=== PATIENT | male | born 1965 | race Caucasian/White ===

== ENCOUNTER 2025-03-08 00:01 | Emergency (ER) | payer MEDICARE, SELFPAY ==
[2025-03-08] VITALS (8 sets, daily range): BP systolic 142–182; BP diastolic 76–103; PULSE 58–62; RESP 10–18; TEMP 36.3; O2SAT 91–100
--- NOTE | ~2025-03-08 | CT_ITS ---
EXAMINATION: CT brain wo con DATE: 03/08/2025 00:39 INDICATION: Head injury. TECHNIQUE: Computed tomography (CT) of the head was performed without intravenous contrast. The mA was adjusted according to patient size. Iterative reconstruction technique was employed. The dose-length product was 605.33 mGy-cm. COMPARISON: None FINDINGS: There is no intracranial hemorrhage, acute infarction, or abnormal intracranial mass lesion. The ventricles are normal in size. There is mucosal thickening in the paranasal sinuses. There is a trace left mastoid effusion. The orbits are normal. IMPRESSION: 1. Normal brain. Reviewed, dictated and finalized at location E. IMPRESSION: 1. Normal brain.
--- NOTE | ~2025-03-08 | XR_ITS ---
Examination: XR shoulder RT min 2V Clinical History: fall down stairs, R shoulder pain Comparison: None Technique: 3 views right shoulder Findings/impression: 1. No fracture or dislocation right shoulder. 2. Multiple small hyperdense foci overlying shoulder girdle, probably artifact or dermal. Reviewed, dictated and finalized at location R.
--- NOTE | ~2025-03-08 | CT_ITS ---
[facility]: [facility] DATE: 03/08/2025 00:40 INDICATION: Trauma. TECHNIQUE: Computed tomography (CT) of the chest, abdomen, pelvis, thoracic spine, and lumbar spine was performed with 100 mL Omnipaque 350 intravenous contrast. Automated exposure control and iterative reconstruction technique were employed. The dose-length product was 1167.28 mGy-cm. COMPARISON: None FINDINGS: CHEST CT: There is mild emphysema. There is a 7 mm nodule in right upper lobe. A calcified right lung nodule is consistent with old granulomatous disease. There is mild atelectasis bilaterally. No pleural effusion. The heart size is normal. No pericardial effusion. There is bilateral gynecomastia. ABDOMEN/PELVIS CT: The liver, gallbladder, spleen, pancreas, adrenal glands, and kidneys are normal. The prostate is mildly enlarged. There are bilateral inguinal hernias containing fat. There are no dilated loops of bowel. The appendix is normal. There are no pathologically enlarged lymph nodes. There is no free intraperitoneal fluid. THORACIC SPINE CT: There is 16 degrees levoscoliosis of upper thoracic spine. There is 2 mm anterolisthesis of C7 on T1. There is mild chronic anterior wedging of many vertebral bodies associated with Schmorl's nodes. There is multilevel mildly decreased disc height and thoracic spine. There is multilevel facet joint osteoarthritis, severe on the right at T4-T5. There is mild neural foraminal stenosis at a few levels. There is mild central canal stenosis at T11-T12. LUMBAR SPINE CT: Alignment is normal. There is mild chronic anterior wedging of L1 vertebral body. There is mildly decreased disc height at L1-L2, L2-L3, and L3-L4 and moderately decreased disc height at L4-L5. There is multilevel severe facet joint osteoarthritis. The discs are bulging from L1-L2 through L5-S1. There is mild bilateral neural foraminal stenosis and mild central canal stenosis from L1-L2 through L5-S1. IMPRESSION: 1. Mild emphysema. 2. 7 mm nodule in right lung upper lobe, probably benign. Noncontrast chest CT is recommended in 6 months. 3. Mild thoracic spondylosis and moderate lumbar spondylosis. Reviewed, dictated and finalized at location E.
--- NOTE | ~2025-03-08 | CT_ITS ---
EXAMINATION: CT facial & cervical spine wo DATE: 03/08/2025 00:40 INDICATION: Head injury. TECHNIQUE: Computed tomography (CT) of the maxillofacial region and cervical spine was performed without intravenous contrast. Automated exposure control and iterative reconstruction technique were employed. The dose-length product was 495.44 mGy-cm. COMPARISON: Cervical spine radiographs 06/28/2013 FINDINGS: MAXILLOFACIAL CT: There is mucosal thickening in the paranasal sinuses. There is leftward deviation of the nasal septum. No acute fracture. The orbits are normal. CERVICAL SPINE CT: There is 2 mm anterolisthesis of C4 on C5 and C7 on T1. Vertebral body heights are normal. There is mildly decreased disc height at C4-C5, severely decreased disc height at C5-C6 and C6-C7, and mildly decreased disc height at C7-T1. There is multilevel severe uncovertebral joint and facet joint osteoarthritis. There is mild neural foraminal stenosis at multiple levels on either side. On the right, there is moderate neural foraminal stenosis at C5-C6 and C6-C7. On the left, there is moderate neural foraminal stenosis at C7-T1. There is mild central canal stenosis at C3-C4, C4-C5, C5-C6, and C6-C7. IMPRESSION: 1. No fracture. 2. Severe cervical spondylosis. Reviewed, dictated and finalized at location E.
--- OUTSIDE RECORDS SUMMARY | 2025-03-08 00:10 | XMS_ITS | Patient Health Record ---
Author Organization [facility] Address [address] [place] [address] Care Team Providers Care Manager Bank Name Role Phone Bharathi Canadaew Primary Care Provider Kiran Del Rio Unavailable [phone] NehaRASHEL, MR. Goncalves Unavailable [phone] Allergies No Known Allergies Results Component Value Reference Range Flag Notes CT Chest with Contrast Reviewed date:02/03/2025 09:17:57 AM Interpretation:closing Performing Lab: Notes/Report: closing [id number] Reviewed date:03/03/2025 08:28:07 AM Interpretation: Performing Lab:[facility], [address] [facility], [place], Phone - [phone], Director - PhDAbudu Notes/Report: Clinical Information:[id number] Clinical Information:[id number] Clinical Information:[id number] Clinical Information:[id number] Amphetamines, Urine Negative Enbaor=0858 ng/mL Amphetamine test includes Amphetamine and Methamphetamine. Barbiturates Negative Uikgrl=287 ng/mL Benzodiazepines Negative Dgmttd=984 ng/mL Cannabinoid Negative Cutoff=20 ng/mL Cocaine (Metab.) Negative Amfzxf=069 ng/mL Opiates See Final Results Xmgizb=694 ng/mL O piate test includes Codeine and Morphine only. Oxycodone/Oxymorphone, Urine See Final Results Syapwp=025 ng/mL Test includes Oxycodone and Oxymorphone PCP, Urine Negative Cutoff=25 ng/mL Methadone Screen, Urine Negative Usjnlo=856 ng/mL Propoxyphene, Urine Negative Pwrywk=426 ng/mL Creatinine, Urine 9.4 20.0-300.0 mg/dL L pH, Urine 5.2 4.5-8.9 Opiates Negative Clidcr=618 Opiate test in cludes Codeine and Morphine only. Oxycodone/Oxymorph Positive Scltsg=191 A Test i ncludes Oxycodone and Oxymorphone Oxycodone Negative Zowhtt=427 Oxymorphone Positive A Oxymorphone Conf, MS, UR 168 Deeiao=016 ng/mL Specific [place] 1.0062 Hydrocodone + Metabolites, U -[id number] Reviewed date:02/24/2025 08:33:19 AM Interpretation: Performing Lab:[facility], [address] [place] [address], Phone - [phone], Director - Ewelina Notes/Report: Clinical Information:[id number] LM Hydrocodone 1810 Hydromorphone 190 This test was developed and its performance characteristics determined by [facility]. It has not been cleared or approved by the Food and Drug Administration. Hemoglobin [id number] Reviewed date:03/18/2024 08:22:17 AM Interpretation: Performing Lab:[facility], [address] [place] [address], Phone - [phone], Director - Pati Notes/Report: Hemoglobin A1c 6.0 4.8-5.6 % H . Prediabetes: 5.7 - 6.4 Diabetes: >6.4 Glycemic control for adults with diabetes: <7.0 LDL Cholesterol (Direct)-120 295 Reviewed date:03/18/2024 08:22:31 AM Interpretation: Performing Lab:[facility] [place], [address] [place] [address], Phone - [phone], Director - Pati Notes/Report: LDL Chol. (Direct) 65 0-99 mg/dL [id number] Reviewed date:03/18/2024 08:22:08 AM Interpretation: Performing Lab:[facility] [place], [address] [facility], Phone - [phone], Director - Pati Notes/Report: NT-proBNP 826 0-210 pg/mL H The following cut-points have been suggested for the use of proBNP for the diagnostic evaluation of heart failure (HF) in patients with acute dyspnea: . Modality Age Optimal Cut (years) Point Diagnosis (rule in HF) <50 450 pg/mL 50 - 75 900 pg/mL >75 1800 pg/mL Exclusion (rule out HF) Age independent 300 pg/mL Lipid Panel-[id number] Reviewed date:03/18/2024 08:21:51 AM Interpretation: Performing Lab:[facility] [place], [address] [facility], Phone - [phone], Director - Pati Notes/Report: Cholesterol, Total 138 100-199 mg/dL Triglycerides 98 0-149 mg/dL HDL Cholesterol 54 >39 mg/dL VLDL Cholesterol Franky 18 5-40 mg/dL LDL Chol Calc ([facility]) 66 0-99 mg/dL LDL Calc Comment: See LDL Comment if reported. Comp. Metabolic Panel (14)-3 51159 Reviewed date:03/18/2024 08:22:24 AM Interpretation: Performing Lab:[facility] [place], [address] [facility], Phone - [phone], Director - Pati Notes/Report: Glucose 87 70-99 mg/dL BUN 12 6-24 mg/dL Creatinine 1.12 0.76-1.27 mg/dL eGFR 76 >59 mL/min/1.73 BUN/Creatinine Ratio 11 9-20 Sodium 140 134-144 mmol/L Potassium 5.2 3.5-5.2 mmol/L Chloride 100 96-106 mmol/L Carbon Dioxide, Total 24 20-29 mmol/L Calcium 9.7 8.7-10.2 mg/dL Protein, Total 7.2 6.0-8.5 g/dL Albumin 4.5 3.8-4.9 g/dL Globulin, Total 2.7 1.5-4.5 g/dL Bilirubin, Total 0.4 0.0-1.2 mg/dL Alkaline Phosphatase 82 44-121 IU/L AST (SGOT) 25 0-40 IU/L ALT (SGPT) 20 0-44 IU/L Prostate-Specific Ag-[id number] Reviewed date:03/18/2024 08:21:58 AM Interpretation: Performing Lab:[facility] [place], [address] [facility], Phone - [phone], Director - [facility] Notes/Report: Prostate Specific Ag 1.0 0.0-4.0 ng/mL Salome ECLIA methodology. . According to the [place] [employer], Serum PSA should decrease and remain at undetectable levels after radical prostatectomy. The AUA defines biochemical recurrence as an initial PSA value 0.2 ng/mL or greater followed by a subsequent confirmatory PSA value 0.2 ng/mL or greater. Values obtained with different assay methods or kits cannot be used interchangeably. Results cannot be interpreted as absolute evidence of the presence or absence of malignant disease. CBC With Differential/Platel et-[id number] Reviewed date:03/18/2024 08:21:42 AM Interpretation: Performing Lab:[facility] [place], [address] [facility], Phone - [phone], Director - [facility] Notes/Report: WBC 8.8 3.4-10.8 x10E3/uL RBC 5.44 4.14-5.80 x10E6/uL Hemoglobin 17.2 13.0-17.7 g/dL Hematocrit 52.7 37.5-51.0 % H MCV 97 79-97 fL MCH 31.6 26.6-33.0 pg MCHC 32.6 31.5-35.7 g/dL RDW 12.4 11.6-15.4 % Platelets 285 150-450 x10E3/uL Neutrophils 70 Not Estab. % Lymphs 19 Not Estab. % Monocytes 9 Not Estab. % Eos 1 Not Estab. % Basos 1 Not Estab. % Neutrophils (Absolute) 6.2 1.4-7.0 x10E3/uL Lymphs (Absolute) 1.7 0.7-3.1 x10E3/uL Monocytes(Absolute) 0.8 0.1-0.9 x10E3/uL Eos (Absolute) 0.1 0.0-0.4 x10E3/uL Baso (Absolute) 0.1 0.0-0.2 x10E3/uL Immature Granulocytes 0 Not Estab. % Immature Grans (Abs) 0.0 0.0-0.1 x10E3/uL TSH-[id number] Reviewed date:03/18/2024 08:20:50 AM Interpretation: Performing Lab:[address], Phone - [phone], Director - [facility] Notes/Report: TSH 2.460 0.450-4.500 uIU/mL Thyroxine (T4) Free, Direct- [id number] Reviewed date:03/18/2024 08:21:29 AM Interpretation: Performing Lab:[address], Phone - [phone], Director - [facility] Notes/Report: T4,Free(Direct) 1.20 0.82-1.77 ng/dL Magnesium-171102 Reviewed date:03/18/2024 08:21:23 AM Interpretation: Performing Lab:[address], Phone - [phone], Director - [facility] Notes/Report: Magnesium 2.3 1.6-2.3 mg/dL CT Scan : Abdomen and Pelvis with contrast Reviewed date:02/03/2025 09:17:27 AM Interpretation:closing Performing Lab: Notes/Report: closing HAVAb+HBcAb+HBsAb+HBsAg+HCVA b-[id number] Reviewed date:12/19/2024 02:15:51 PM Interpretation: Performing Lab:[address], Phone - [phone], Director - [facility] Notes/Report: Hep A Ab, Total Negative Negative Comment: The HAV total antibody assay detects both IgG and IgM but does not differentiate between them. A negative result suggests susceptibility to infection. A positive result could be due to vaccination, previously resolved infection or active infection. Testing for HAV IgM should be performed if active HAV infection is suspected. [facility] offers profiles that will automatically reflex positive HAV total antibody results to IgM (e.g., panel #[id number] HAV Antibody w/ Rfx). HBsAg Screen Negative Negative Hep B Core Ab, Tot Negative Negative Hep B Surface Ab, Qual Non Reactive Non Reactive: Not immune to HBV infection. Equivocal: Unable to determine if anti-HBs is present at levels consistent with immunity. Reactive: Anti-HBs concentration detected at greater than 10 mIU/mL. Individual is considered to be immune to infection with HBV. HCV Ab Non Reactive Non Reactive Interpretation: Not infected with HCV unless early or acute infection is suspected (which may be delayed in an immunocompromised individual), or other evidence exists to indicate HCV infection. Comp. Metabolic Panel (14)-3 15293 Reviewed date:12/19/2024 02:15:51 PM Interpretation: Performing Lab:[facility] [place], [address] [facility], Phone - [phone], Director - [facility] Notes/Report: Glucose 96 70-99 mg/dL BUN 12 6-24 mg/dL Creatinine 1.06 0.76-1.27 mg/dL eGFR 81 >59 mL/min/1.73 BUN/Creatinine Ratio 11 9-20 Sodium 137 134-144 mmol/L Potassium 5.0 3.5-5.2 mmol/L Chloride 98 96-106 mmol/L Carbon Dioxide, Total 26 20-29 mmol/L Calcium 9.4 8.7-10.2 mg/dL Protein, Total 7.3 6.0-8.5 g/dL Albumin 4.6 3.8-4.9 g/dL Globulin, Total 2.7 1.5-4.5 g/dL Bilirubin, Total 0.4 0.0-1.2 mg/dL Alkaline Phosphatase 93 44-121 IU/L AST (SGOT) 20 0-40 IU/L ALT (SGPT) 14 0-44 IU/L Lipid Panel-[id number] Reviewed date:12/19/2024 02:15:51 PM Interpretation: Performing Lab:[facility] [place], [address] [facility] [place], Phone - [phone], Director - [facility] Notes/Report: Cholesterol, Total 129 100-199 mg/dL Triglycerides 66 0-149 mg/dL HDL Cholesterol 55 >39 mg/dL VLDL Cholesterol Franky 14 5-40 mg/dL LDL Chol Calc ([facility]) 60 0-99 mg/dL LDL Calc Comment: See LDL Comment if reported. LDL Cholesterol (Direct)-120 295 Reviewed date:12/19/2024 02:15:51 PM Interpretation: Performing Lab:[address], Phone - [phone], Director - [facility] Notes/Report: LDL Chol. (Direct) 57 0-99 mg/dL CBC With Differential/Platel et-[id number] Reviewed date:12/19/2024 02:15:51 PM Interpretation: Performing Lab:[facility], [address] [place] [address], Phone - [phone], Director - [facility] Notes/Report: WBC 5.4 3.4-10.8 x10E3/uL RBC 4.85 4.14-5.80 x10E6/uL Hemoglobin 15.1 13.0-17.7 g/dL Hematocrit 47.2 37.5-51.0 % MCV 97 79-97 fL MCH 31.1 26.6-33.0 pg MCHC 32.0 31.5-35.7 g/dL RDW 12.7 11.6-15.4 % Platelets 255 150-450 x10E3/uL Neutrophils 47 Not Estab. % Lymphs 33 Not Estab. % Monocytes 15 Not Estab. % Eos 3 Not Estab. % Basos 2 Not Estab. % Neutrophils (Absolute) 2.5 1.4-7.0 x10E3/uL Lymphs (Absolute) 1.8 0.7-3.1 x10E3/uL Monocytes(Absolute) 0.8 0.1-0.9 x10E3/uL Eos (Absolute) 0.2 0.0-0.4 x10E3/uL Baso (Absolute) 0.1 0.0-0.2 x10E3/uL Immature Granulocytes 0 Not Estab. % Immature Grans (Abs) 0.0 0.0-0.1 x10E3/uL Hemoglobin [id number] Reviewed date:12/19/2024 02:15:51 PM Interpretation: Performing Lab:[facility], [address] [place] [address], Phone - [phone], Director - [facility] Notes/Report: Hemoglobin A1c 5.8 4.8-5.6 % H . Prediabetes: 5.7 - 6.4 Diabetes: >6.4 Glycemic control for adults with diabetes: <7.0 Lipase-[id number] Reviewed date:12/19/2024 02:15:50 PM Interpretation: Performing Lab:[facility] [address], Phone - [phone], Director - [facility] Notes/Report: Lipase 23 13-78 U/L Colonoscopy Reviewed date:01/09/2025 07:53:47 AM Interpretation: Performing Lab: Notes/Report: Comp. Metabolic Panel (14)-3 Reviewed date:09/18/2024 08:10:49 AM Interpretation: Performing Lab:[facility] [address], Phone - [phone], Director - [facility] Notes/Report: Glucose 96 70-99 mg/dL BUN 16 6-24 mg/dL Creatinine 1.11 0.76-1.27 mg/dL eGFR 77 >59 mL/min/1.73 BUN/Creatinine Ratio 14 9-20 Sodium 139 134-144 mmol/L Potassium 5.1 3.5-5.2 mmol/L Chloride 99 96-106 mmol/L Carbon Dioxide, Total 25 20-29 mmol/L Calcium 9.5 8.7-10.2 mg/dL Protein, Total 7.1 6.0-8.5 g/dL Albumin 4.4 3.8-4.9 g/dL Globulin, Total 2.7 1.5-4.5 g/dL Bilirubin, Total 0.3 0.0-1.2 mg/dL Alkaline Phosphatase 93 44-121 IU/L AST (SGOT) 21 0-40 IU/L ALT (SGPT) 18 0-44 IU/L Lipid Panel-[id number] Reviewed date:09/18/2024 08:10:49 AM Interpretation: Performing Lab:[facility], Phone - [phone], Director - [facility] Notes/Report: Cholesterol, Total 135 100-199 mg/dL Triglycerides 79 0-149 mg/dL HDL Cholesterol 51 >39 mg/dL VLDL Cholesterol Franky 16 5-40 mg/dL LDL Chol Calc ([facility]) 68 0-99 mg/dL LDL Calc Comment: See LDL Comment if reported. LDL Cholesterol (Direct)-120 295 Reviewed date:09/18/2024 08:10:49 AM Interpretation: Performing Lab:[facility], [address] [facility], Phone - [phone], Director - [facility] Notes/Report: LDL Chol. (Direct) 64 0-99 mg/dL CBC With Differential/Platel et-[id number] Reviewed date:09/18/2024 08:10:49 AM Interpretation: Performing Lab:[facility], [address] [place] [address], Phone - [phone], Director - [facility] Notes/Report: WBC 8.0 3.4-10.8 x10E3/uL RBC 4.82 4.14-5.80 x10E6/uL Hemoglobin 15.3 13.0-17.7 g/dL Hematocrit 46.6 37.5-51.0 % MCV 97 79-97 fL MCH 31.7 26.6-33.0 pg MCHC 32.8 31.5-35.7 g/dL RDW 11.9 11.6-15.4 % Platelets 261 150-450 x10E3/uL Neutrophils 63 Not Estab. % Lymphs 23 Not Estab. % Monocytes 10 Not Estab. % Eos 3 Not Estab. % Basos 1 Not Estab. % Neutrophils (Absolute) 5.0 1.4-7.0 x10E3/uL Lymphs (Absolute) 1.8 0.7-3.1 x10E3/uL Monocytes(Absolute) 0.8 0.1-0.9 x10E3/uL Eos (Absolute) 0.2 0.0-0.4 x10E3/uL Baso (Absolute) 0.1 0.0-0.2 x10E3/uL Immature Granulocytes 0 Not Estab. % Immature Grans (Abs) 0.0 0.0-0.1 x10E3/uL Hemoglobin [id number] Reviewed date:09/18/2024 08:10:48 AM Interpretation: Performing Lab:[facility], [address] [place] [address], Phone - [phone], Director - [facility] Notes/Report: Hemoglobin A1c 5.8 4.8-5.6 % H . Prediabetes: 5.7 - 6.4 Diabetes: >6.4 Glycemic control for adults with diabetes: <7.0 Comp. Metabolic Panel (14)-3 Reviewed date:06/13/2024 10:08:39 AM Interpretation: Performing Lab:[facility] [place], [address] [facility], Phone - [phone], Director - Pati Notes/Report: Glucose 85 70-99 mg/dL BUN 12 6-24 mg/dL Creatinine 1.02 0.76-1.27 mg/dL eGFR 85 >59 mL/min/1.73 BUN/Creatinine Ratio 12 9-20 Sodium 138 134-144 mmol/L Potassium 4.8 3.5-5.2 mmol/L Chloride 97 96-106 mmol/L Carbon Dioxide, Total 24 20-29 mmol/L Calcium 9.5 8.7-10.2 mg/dL Protein, Total 7.0 6.0-8.5 g/dL Albumin 4.5 3.8-4.9 g/dL Globulin, Total 2.5 1.5-4.5 g/dL Bilirubin, Total 0.6 0.0-1.2 mg/dL Alkaline Phosphatase 84 44-121 IU/L AST (SGOT) 20 0-40 IU/L ALT (SGPT) 12 0-44 IU/L Lipid Panel-[id number] Reviewed date:06/13/2024 10:08:39 AM Interpretation: Performing Lab:[facility] [place], [address] [facility], Phone - [phone], Director - Pati Notes/Report: Cholesterol, Total 131 100-199 mg/dL Triglycerides 74 0-149 mg/dL HDL Cholesterol 56 >39 mg/dL VLDL Cholesterol Franky 15 5-40 mg/dL LDL Chol Calc ([facility]) 60 0-99 mg/dL LDL Calc Comment: See LDL Comment if reported. LDL Cholesterol (Direct)-120 295 Reviewed date:06/13/2024 10:08:39 AM Interpretation: Performing Lab:[facility] [place], [address] [facility], Phone - [phone], Director - Pati Notes/Report: LDL Chol. (Direct) 63 0-99 mg/dL CBC With Differential/Platel et-[id number] Reviewed date:06/13/2024 10:08:39 AM Interpretation: Performing Lab:[facility] [place], [address] [facility], Phone - [phone], Director - Pati Notes/Report: WBC 6.6 3.4-10.8 x10E3/uL RBC 4.70 4.14-5.80 x10E6/uL Hemoglobin 15.2 13.0-17.7 g/dL Hematocrit 45.8 37.5-51.0 % MCV 97 79-97 fL MCH 32.3 26.6-33.0 pg MCHC 33.2 31.5-35.7 g/dL RDW 13.7 11.6-15.4 % Platelets 267 150-450 x10E3/uL Neutrophils 48 Not Estab. % Lymphs 36 Not Estab. % Monocytes 12 Not Estab. % Eos 3 Not Estab. % Basos 1 Not Estab. % Neutrophils (Absolute) 3.1 1.4-7.0 x10E3/uL Lymphs (Absolute) 2.4 0.7-3.1 x10E3/uL Monocytes(Absolute) 0.8 0.1-0.9 x10E3/uL Eos (Absolute) 0.2 0.0-0.4 x10E3/uL Baso (Absolute) 0.1 0.0-0.2 x10E3/uL Immature Granulocytes 0 Not Estab. % Immature Grans (Abs) 0.0 0.0-0.1 x10E3/uL Hemoglobin [id number] Reviewed date:06/13/2024 10:08:39 AM Interpretation: Performing Lab:[facility] [place], [address] [facility], Phone - [phone], Director - [facility] Notes/Report: Hemoglobin A1c 5.8 4.8-5.6 % H . Prediabetes: 5.7 - 6.4 Diabetes: >6.4 Glycemic control for adults with diabetes: <7.0 Reason For Referral Reason COPD Diagnosis 1 Chronic obstructive pulmonary disease, unspecified COPD type (J44.9) Referral Organization [facility] Referring Provider First Name Josh Referring Provider Last Name Nancie Referring Provider Speciality Internal M edicine [facility] Referred Provider Specialty Pulmonary Di seases General Notes Deepika Brooks 2023 09:34:46 AM >Faxed this morning [phone] fax [phone], Deepika Brooks 04/01/2024 10:47:54 AM >Tried to obtain a insurance referral from [facility] however Brandon nor Dr. Del Rio is listed as PCP left pt vm asking him to call [facility] and get pcp changed this is the only way I can obtain insurance referral, Deepika Brooks 06/13/2024 10:37:00 AM >amparo on 06/10 was canceled RS for 07/01 @ 1pm, Deepika Brooks 07/03/2024 09:57:26 AM >amparo for 07/01 was cancelled RS for 08/07 @ 1pmCecilia Ella 10/16/2024 02:40:31 PM >per EPIC canceled and has not RS closing Referral Priority Routine Referral Appointment Date 08/07/2024 Medications Medication SIG (Take, Route, Frequency, Duration) Notes Start Date End Date Status HYDROcodone-Acetamino phen 10-325 MG Tablet TAKE 1 OR 2 TABLETS Orally every 6 hrs; Duration: 30 days As needed for pain 28 days between fills 03/03/2025 03/28/2025 Active Calcium Carbonate 1250 (500 Ca) MG Tablet Chewable 1 tablet with food Orally Twice a day Not-Taking Fluticasone Propionate HFA 220 MCG/ACT Aerosol 1 puff Inhalation Twice a day Not-Taking Entresto 24-26 MG Tablet 1 tablet Orally Twice a day Not-Taking Atorvastatin Calcium 40 MG Tablet TAKE ONE TABLET BY MOUTH EVERY DAY; Duration: 30 Active Amiodarone HCl 200 MG Tablet 1 tablet Orally Once a day Active Metoprolol Succinate ER 200 MG Tablet Extended Release 24 Hour 1 tablet Orally q hs Active Omeprazole 40 MG Capsule Delayed Release TAKE 1 CAPSULE BY MOUTH DAILY ORALLY ONCE A DAY 30 DAYS; Duration: 30 Active Varenicline Tartrate 0.5 MG Tablet 1 tablet once a day for 3 days, 1 tablet 2 times a day for 3 days, 2 tablets 2 times a day for 24 days Orally; Duration: 30 days for refill please do 1mg twice daily x 30 days Not-Taking Acetaminophen 325 MG Tablet 1 tablet as needed Orally every 6 hrs Active Telmisartan 20 MG Tablet 1 tablet Orally Once a day Active Empagliflozin 10 MG Tablet 1 tablet Orally Once a day Active Eliquis 5 MG Tablet 1 tablet Orally twice a day; Duration: 30 days Active Furosemide 40 MG Tablet 1 half tablet Orally Once a day Active ALPRAZolam 1 MG Tablet TAKE ONE TABLET BY MOUTH Orally one time daily as needed; Duration: 30 days As needed for anxiety 01/09/2025 Active Fiber Adult Gummies 2 GM Tablet Chewable as directed Orally daily As needed Active Levalbuterol Tartrate 45 MCG/ACT Aerosol 1 puff as needed Inhalation every 6 hrs; Duration: 30 days As needed for SOB Active Immunizations Vaccine Route Administration Date Status Comme nts COVID-19 (Sars-COV-2) vaccin e, unspecified Unknown 07/21/2020 Administered COVID-19 (Sars-COV-2) vaccin e, unspecified Unknown 05/12/2021 Administered COVID-19 (Sars-COV-2) vaccin e, unspecified Unknown 02/27/2024 Administered Influenza virus vaccine, quadrivalent (IIV4), split virus, 0.25 mL dosage Unknown 05/12/2021 Administered Influenza, seasonal, injecta ble, preservative free, 6-35 months Unknown 02/17/2024 Administered Pneumococcal polysaccharide PPV23 Unknown 04/21/2021 Ad ministered Shingrix Unknown 02/27/2024 Administered Social History Tobacco Use: Social History Observation Description Date Details (start date - stop date) Former Smoker NA - 09/12/2024 Social History Miscellaneous: Social Info Question Answer Notes Safety issues: Do you feel safe at home? Yes Are there any firearms in the house? No Sexual History: Social Info Question Answer Notes Sexual History Had sex in the past 12 months (vaginal, oral, or anal)? Yes with Women only Use protection? No Have you ever had a Sexually transmitted disease ? No Drugs/Alcohol: Social Info Question Answer Notes Drugs Have you used drugs other than those for medical reasons in the past 12 months? No Do you use marijuana? Do you use marijuana? No Caffeine Intake: 1-2 cups per day Household: Social Info Question Answer Notes Household Marital status: Number of adults in household: 2 Tobacco Use: Social Info Question Answer Notes Tobacco Control (Standard) Tobacco use: Former smoker When did you stop smoking? 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 De nies Do you drink alcohol? Socially Migrated Social History Migrated Social History Alcohol Intake: Moderate 03/17/2020,Tobacco Years: Formerly 02/11/2021,Smoking Status: 30 03/17/2020 Problems Problem Type SNOMED Code ICD Code Onset Dates Problem Status W/U Status Risk Notes Problem Chronic pain (75965368) Other chronic pain (G89.29) Active confirmed Problem Anesthesia of skin (873440787) Anesthesia of skin (R20.0) Active confirmed Problem Prediabetes (259568891) Prediabetes (R73.03) Active confirmed Problem Rupture of right rotator cuff (97167868982286616 ) Unsp rotatr-cuff tear/ruptr of right shoulder, not trauma (M75.101) 03/09/20 20 Active confirmed Problem Primary hypertension (75275770) Primary hypertension (I10) Active confirmed Problem Hyperlipidaemia (49106283) Hyperlipidemia, unspecified hyperlipidemia type (E78.5) Active confirmed Problem Vitamin D deficiency (46930711) Vitamin D deficiency (E55.9) Active confirmed Problem Chronic atrial fibrillation (961550113) Chronic atrial fibrillation (I48.20) Active confirmed Problem Pulmonary nodule (252070785) Pulmonary nodule (R91.1) Active confirmed Problem Chronic sinusitis (63966647) Sinusitis, unspecified chronicity, unspecified location (J32.9) Active confirmed Problem COPD - Chronic obstructive pulmonary disease (05313370) Chronic obstructive pulmonary disease, unspecified COPD type (J44.9) Active confirmed Problem Atrial fibrillation (87237899) Atrial fibrillation, unspecified type (I48.91) Active confirmed Problem Heart failure (60932349) Congestive heart failure, unspecified HF chronicity, unspecified heart failure type (I50.9) Active confirmed Problem Lumbar spondylosis (921201381) Lumbar spondylosis (M47.816) Active confirmed Problem Testicular hypofunction (637837266) Testicular hypofunction (E29.1) 03/22/20 21 Active confirmed Problem Vitamin B deficiency (58676033) Vitamin B deficiency, unspecified (E53.9) 03/22/20 21 Active confirmed Problem Vitamin D deficiency (59458570) Vitamin D deficiency, unspecified (E55.9) 03/22/20 21 Active confirmed Problem Mixed hyperlipidemia (357702416) Mixed hyperlipidemia (E78.2) 11/23/19 22 Active confirmed Problem Tobacco user (807352630) Nicotine dependence, unspecified, uncomplicated (F17.200) 11/23/19 Active confirmed Problem Anxiety disorder (270923445) Anxiety disorder, unspecified (F41.9) 11/18/19 Active confirmed Problem Essential hypertension (40060176) Essential (primary) hypertension (I10) 11/23/19 Active confirmed Problem Chronic sinusitis (58737499) Chronic sinusitis, unspecified (J32.9) 10/24/19 Active confirmed Problem Chronic obstructive pulmonary disease (57918056) Chronic obstructive pulmonary disease, unspecified (J44.9) 11/23/19 Active confirmed Problem Gastro-esophageal reflux disease without esophagitis ([id number]) Gastro-esophageal reflux disease without esophagitis (K21.9) 11/23/19 Active confirmed Problem Localized, primary osteoarthritis of the shoulder region (331603700) Primary osteoarthritis, unspecified shoulder (M19.019) 02/07/20 19 Active confirmed Problem Cervical radiculopathy (05058032) Radiculopathy, cervical region (M54.12) 11/23/19 Active confirmed Problem Neuralgia (43560408) Neuralgia and neuritis, unspecified (M79.2) 03/09/20 Active confirmed Problem Spinal stenosis of lumbar region (19461293) Spinal stenosis, lumbar region without neurogenic reva (M48.061) 11/23/19 Active confirmed Vital Signs Heart Rate 52 /min 02/20/2025 Temperature 96.2 degrees Fahrenheit 02/20/2025 Height-cm 187.96 cm 02/20/2025 Oximetry 95 % 01/09/2025 Pt declined rap id hiv Blood pressure diastolic 80 mm Hg 01/09/2025 Pt declined rapid hiv Weight-kg 86.64 kg 02/20/2025 Height 74.00 in 02/20/2025 Blood pressure systolic 141 mm Hg 01/09/2025 Pt d eclined rapid hiv Weight 191.0 lbs 02/20/2025 BMI 24.52 kg/m2 02/20/2025 Encounters Encounter Location Date Provider Diagnosis [id number] [place] [address] 03/14/2024 Josh Canada Unsp rotatr-cuff tear/ruptr of right shoulder, not trauma M75.101 ; Anxiety disorder, unspecified F41.9 ; Chronic atrial fibrillation I48.20 ; Primary hypertension I10 ; Chronic obstructive pulmonary disease, unspecified J44.9 ; Gastro-esophageal reflux disease without esophagitis K21.9 ; Hyperlipidemia, unspecified hyperlipidemia type E78.5 ; Nicotine dependence, unspecified, uncomplicated F17.200 ; Hyperglycemia R73.9 ; On watermelon inspector drug therapy Z79.899 ; Screening for prostate cancer Z12.5 ; Congestive heart failure, unspecified HF chronicity, unspecified heart failure type I50.9 and Sinusitis, unspecified chronicity, unspecified location J32.[address] [address] 04/17/2024 Josh Canada Unsp rotatr-cuff tear/ruptr of right shoulder, not trauma M75.101 ; Anxiety disorder, unspecified F41.9 ; Chronic atrial fibrillation I48.20 ; Primary hypertension I10 ; Chronic obstructive pulmonary disease, unspecified J44.9 ; Gastro-esophageal reflux disease without esophagitis K21.9 ; Hyperlipidemia, unspecified hyperlipidemia type E78.5 ; Nicotine dependence, unspecified, uncomplicated F17.200 ; Hyperglycemia R73.9 ; Screening for prostate cancer Z12.5 ; Congestive heart failure, unspecified HF chronicity, unspecified heart failure type I50.9 and Sinusitis, unspecified chronicity, unspecified location J32.[address] [address] 05/13/2024 Josh Canada Unsp rotatr-cuff tear/ruptr of right shoulder, not trauma M75.101 ; Anxiety disorder, unspecified F41.9 ; Chronic atrial fibrillation I48.20 ; Primary hypertension I10 ; Chronic obstructive pulmonary disease, unspecified J44.9 ; Gastro-esophageal reflux disease without esophagitis K21.9 ; Hyperlipidemia, unspecified hyperlipidemia type E78.5 ; Nicotine dependence, unspecified, uncomplicated F17.200 ; Hyperglycemia R73.9 ; Congestive heart failure, unspecified HF chronicity, unspecified heart failure type I50.9 and Lip lesion K13.[address] [address] 06/12/2024 Josh Canada Unsp rotatr-cuff tear/ruptr of right shoulder, not trauma M75.101 ; Anxiety disorder, unspecified F41.9 ; Chronic atrial fibrillation I48.20 ; Primary hypertension I10 ; Chronic obstructive pulmonary disease, unspecified J44.9 ; Gastro-esophageal reflux disease without esophagitis K21.9 ; Hyperlipidemia, unspecified hyperlipidemia type E78.5 ; Nicotine dependence, unspecified, uncomplicated F17.200 ; Hyperglycemia R73.9 ; Congestive heart failure, unspecified HF chronicity, unspecified heart failure type I50.9 and Lip lesion K13.[address] [address] 08/05/2024 Josh Canada Unsp rotatr-cuff tear/ruptr of right shoulder, not trauma M75.101 ; Anxiety disorder, unspecified F41.9 ; Chronic atrial fibrillation I48.20 ; Primary hypertension I10 ; Chronic obstructive pulmonary disease, unspecified J44.9 ; Gastro-esophageal reflux disease without esophagitis K21.9 ; Hyperlipidemia, unspecified hyperlipidemia type E78.5 ; Nicotine dependence, unspecified, uncomplicated F17.200 ; Hyperglycemia R73.9 ; Congestive heart failure, unspecified HF chronicity, unspecified heart failure type I50.9 and Lip lesion K13.[address] [address] 09/17/2024 Sacha Suzan Unsp rotatr-cuff tear/ruptr of right shoulder, not trauma M75.101 ; Anxiety disorder, unspecified F41.9 ; Chronic atrial fibrillation I48.20 ; Primary hypertension I10 ; Chronic obstructive pulmonary disease, unspecified J44.9 ; Gastro-esophageal reflux disease without esophagitis K21.9 ; Hyperlipidemia, unspecified hyperlipidemia type E78.5 ; Nicotine dependence, unspecified, uncomplicated F17.200 ; Hyperglycemia R73.9 and Congestive heart failure, unspecified HF chronicity, unspecified heart failure type I50.[address] [address] 11/11/2024 Josh Canada Unsp rotatr-cuff tear/ruptr of right shoulder, not trauma M75.101 ; Anxiety disorder, unspecified F41.9 ; Chronic atrial fibrillation I48.20 ; Primary hypertension I10 ; Chronic obstructive pulmonary disease, unspecified J44.9 ; Gastro-esophageal reflux disease without esophagitis K21.9 ; Hyperlipidemia, unspecified hyperlipidemia type E78.5 ; Nicotine dependence, unspecified, uncomplicated F17.200 ; Hyperglycemia R73.9 ; Congestive heart failure, unspecified HF chronicity, unspecified heart failure type I50.9 ; Lip lesion K13.0 and Screen for colon cancer Z12.[address] [address] 12/16/2024 Josh Canada Unsp rotatr-cuff tear/ruptr of right shoulder, not trauma M75.101 ; Anxiety disorder, unspecified F41.9 ; Chronic atrial fibrillation I48.20 ; Primary hypertension I10 ; Chronic obstructive pulmonary disease, unspecified J44.9 ; Gastro-esophageal reflux disease without esophagitis K21.9 ; Hyperlipidemia, unspecified hyperlipidemia type E78.5 ; Nicotine dependence, unspecified, uncomplicated F17.200 ; Hyperglycemia R73.9 ; Congestive heart failure, unspecified HF chronicity, unspecified heart failure type I50.9 ; Lip lesion K13.0 ; Screen for colon cancer Z12.11 and Abdominal discomfort R10.[address] [address] 01/09/2025 Josh Canada Unsp rotatr-cuff tear/ruptr of right shoulder, not trauma M75.101 ; Anxiety disorder, unspecified F41.9 ; Chronic atrial fibrillation I48.20 ; Primary hypertension I10 ; Chronic obstructive pulmonary disease, unspecified J44.9 ; Gastro-esophageal reflux disease without esophagitis K21.9 ; Hyperlipidemia, unspecified hyperlipidemia type E78.5 ; Nicotine dependence, unspecified, uncomplicated F17.200 ; Hyperglycemia R73.9 ; Congestive heart failure, unspecified HF chronicity, unspecified heart failure type I50.9 ; Lip lesion K13.0 ; Screen for colon cancer Z12.11 ; Abdominal discomfort R10.9 and Pulmonary nodules R91.[address] [address] 02/20/2025 Josh Canada Anxiety disorder, unspecified F41.9 ; Nicotine dependence, unspecified, uncomplicated F17.200 ; Chronic obstructive pulmonary disease, unspecified J44.9 ; Gastro-esophageal reflux disease without esophagitis K21.9 ; Unsp rotatr-cuff tear/ruptr of right shoulder, not trauma M75.101 ; Primary hypertension I10 ; Hyperlipidemia, unspecified hyperlipidemia type E78.5 ; Chronic atrial fibrillation I48.20 ; Screen for colon cancer Z12.11 ; Hyperglycemia R73.9 ; Congestive heart failure, unspecified HF chronicity, unspecified heart failure type I50.9 ; Abdominal discomfort R10.9 ; Pulmonary nodules R91.8 ; Lip lesion K13.0 and On snf drug therapy Z79.[address] [address] 03/14/2024 Kiran Scheperle Low back pain, unspecified back pain laterality, unspecified chronicity, unspecified whether sciatica present M54.[address] [address] 03/14/2024 Josh Nancie [address] [address] 03/18/2024 Kiran Scheperle Low back pain, unspecified back pain laterality, unspecified chronicity, unspecified whether sciatica present M54.[address] [address] 04/17/2024 Josh Canada [address] [address] 04/18/2024 Kiran Scheperle Low back pain, unspecified back pain laterality, unspecified chronicity, unspecified whether sciatica present M54.[address] [address] 05/13/2024 Kiran Scheperle Low back pain, unspecified back pain laterality, unspecified chronicity, unspecified whether sciatica present M54.[address] [address] 06/24/2024 Josh Canada Sinusitis, unspecifi ed chronicity, unspecified location J32.[address] [address] 07/02/2024 Kiran Scheperle Low back pain, unspecified back pain laterality, unspecified chronicity, unspecified whether sciatica present M54.[address] [address] 08/05/2024 Kiran Scheperle [address] [address] 08/06/2024 Kiran Scheperle Low back pain, unspecified back pain laterality, unspecified chronicity, unspecified whether sciatica present M54.[address] [address] 08/31/2024 Josh Nancie Anxiety disorder, unspecified F41.[address] [address] 09/19/2024 Kiran Scheperle Low back pain, unspecified back pain laterality, unspecified chronicity, unspecified whether sciatica present M54.[address] [address] 10/01/2024 Kiran Scheperle Low back pain, unspecified back pain laterality, unspecified chronicity, unspecified whether sciatica present M54.[address] [address] 10/16/2024 Josh Canada [address] [address] 10/25/2024 Josh Canada [address] [address] 11/11/2024 Kiran Blakele [address] [address] 12/16/2024 Josh Canada [address] [address] 12/19/2024 Josh Canada [address] [address] 01/09/2025 Josh Canada Pulmonary nodule R91 .[address] [address] 01/09/2025 Kiran Scheperle Low back pain, unspecified back pain laterality, unspecified chronicity, unspecified whether sciatica present M54.[address] [address] 02/11/2025 Kiran Scheperle Low back pain, unspecified back pain laterality, unspecified chronicity, unspecified whether sciatica present M54.[address] [address] 02/26/2025 Kiran Scheperle Low back pain, unspecified back pain laterality, unspecified chronicity, unspecified whether sciatica present M54.[address] [address] 11/11/2024 oJsh [place] Assessments Encounter Date Diagnosis (ICD Code) Assessment Notes Treatment Notes Treatment Clinical Notes Section Notes 06/24/2024 Sinusitis, unspecified chronicity, unspecified location (ICD-10 - J32.9) 07/02/2024 Low back pain, unspecified back pain laterality, unspecified chronicity, unspecified whether sciatica present (ICD-10 - M54.50) 08/05/2024 Unsp rotatr-cuff tear/ruptr of right shoulder, not trauma (ICD-10 - M75.101) Hydrocodone is assisting with pain. MRI from 2019 revealed superior labrum extending posteriorly to 10 o'clock position. Has received steroid injections in the past. Continue with hydrocodone. 08/06/2024 Low back pain, unspecified back pain laterality, unspecified chronicity, unspecified whether sciatica present (ICD-10 - M54.50) 08/31/2024 Anxiety disorder, unspecified (ICD-10 - F41.9) 09/17/2024 Anxiety disorder, unspecified (ICD-10 - F41.9) 09/17/2024 Unsp rotatr-cuff tear/ruptr of right shoulder, not trauma (ICD-10 - M75.101) 09/19/2024 Low back pain, unspecified back pain laterality, unspecified chronicity, unspecified whether sciatica present (ICD-10 - M54.50) 10/01/2024 Low back pain, unspecified back pain laterality, unspecified chronicity, unspecified whether sciatica present (ICD-10 - M54.50) 11/11/2024 Anxiety disorder, unspecified (ICD-10 - F41.9) Xanax prn 11/11/2024 Unsp rotatr-cuff tear/ruptr of right shoulder, not trauma (ICD-10 - M75.101) Hydrocodone is assisting with pain. MRI from 2019 revealed superior labrum extending posteriorly to 10 o'clock position. Has received steroid injections in the past. Continue with hydrocodone. 12/16/2024 Anxiety disorder, unspecified (ICD-10 - F41.9) Xanax prn 03/14/2024 Low back pain, unspecified back pain laterality, unspecified chronicity, unspecified whether sciatica present (ICD-10 - M54.50) 03/18/2024 Low back pain, unspecified back pain laterality, unspecified chronicity, unspecified whether sciatica present (ICD-10 - M54.50) 04/17/2024 Anxiety disorder, unspecified (ICD-10 - F41.9) Xanax prn He has an increase in anxiety since he stopped smoking. He has been doing taking steps to improve his overall health. 04/17/2024 Unsp rotatr-cuff tear/ruptr of right shoulder, not trauma (ICD-10 - M75.101) Hydrocodone filled by Dr. Del Rio. MRI from 2019 revealed superior labrum extending posteriorly to 10 o'clock position. Has received steroid injections in the past. Continue with hydrocodone. 04/18/2024 Low back pain, unspecified back pain laterality, unspecified chronicity, unspecified whether sciatica present (ICD-10 - M54.50) 05/13/2024 Anxiety disorder, unspecified (ICD-10 - F41.9) Xanax prn 05/13/2024 Unsp rotatr-cuff tear/ruptr of right shoulder, not trauma (ICD-10 - M75.101) Hydrocodone filled by Dr. Del Rio. MRI from 2019 revealed superior labrum extending posteriorly to 10 o'clock position. Has received steroid injections in the past. Continue with hydrocodone. 05/13/2024 Low back pain, unspecified back pain laterality, unspecified chronicity, unspecified whether sciatica present (ICD-10 - M54.50) 06/12/2024 Unsp rotatr-cuff tear/ruptr of right shoulder, not trauma (ICD-10 - M75.101) Hydrocodone filled by Dr. Del Rio. MRI from 2019 revealed superior labrum extending posteriorly to 10 o'clock position. Has received steroid injections in the past. Continue with hydrocodone. 03/14/2024 Anxiety disorder, unspecified (ICD-10 - F41.9) Xanax prn 03/14/2024 Unsp rotatr-cuff tear/ruptr of right shoulder, not trauma (ICD-10 - M75.101) Hydrocodone filled by Dr. Del Rio. MRI from 2019 revealed superior labrum extending posteriorly to 10 o'clock position. Has received steroid injections in the past. Continue with hydrocodone. 12/16/2024 Unsp rotatr-cuff tear/ruptr of right shoulder, not trauma (ICD-10 - M75.101) Hydrocodone is assisting with pain. MRI from 2019 revealed superior labrum extending posteriorly to 10 o'clock position. Has received steroid injections in the past. Continue with hydrocodone. 01/09/2025 Anxiety disorder, unspecified (ICD-10 - F41.9) Xanax prn 01/09/2025 Unsp rotatr-cuff tear/ruptr of right shoulder, not trauma (ICD-10 - M75.101) Hydrocodone is assisting with pain. MRI from 2019 revealed superior labrum extending posteriorly to 10 o'clock position. Has received steroid injections in the past. Continue with hydrocodone. Pain journal received today 02/20/2025 Anxiety disorder, unspecified (ICD-10 - F41.9) Xanax prn 01/09/2025 Pulmonary nodule (ICD-10 - R91.1) 01/09/2025 Low back pain, unspecified back pain laterality, unspecified chronicity, unspecified whether sciatica present (ICD-10 - M54.50) 02/11/2025 Low back pain, unspecified back pain laterality, unspecified chronicity, unspecified whether sciatica present (ICD-10 - M54.50) 02/26/2025 Low back pain, unspecified back pain laterality, unspecified chronicity, unspecified whether sciatica present (ICD-10 - M54.50) 02/20/2025 Nicotine dependence, unspecified, uncomplicated (ICD-10 - F17.200) Cessation encouraged-extensive discussion held regarding potential implications of continued smoking 01/09/2025 Chronic atrial fibrillation (ICD-10 - I48.20) S/P cardiac ablation Cardiology disconintued ab Added telmisartan Changed metoprolol to 200mg XL daily from BID Lasix 20mg daily amiodarone 200mg daily eliquis Keep appt with cardiology on 04/16. It sounds like his provider will no longer be practicing in the area so he may need a referral to another provider. He will let us know 12/16/2024 Chronic atrial fibrillation (ICD-10 - I48.20) S/P cardiac ablation Cardiology disconintued samsto Added telmisartan Changed metoprolol to 200mg XL daily from BID Lasix 20mg daily amiodarone 200mg daily eliquis Keep appt with cardiology 03/14/2024 Chronic atrial fibrillation (ICD-10 - I48.20) Recently sent to hospital for a fib with RVR. He was cardioverted. He is now under the care of development representative, Dr Otto. He is being referred to EP. He will continue with entresto 24-26 BID Lasix 20mg daily metoprolol 200mg XL BID amiodarone 200mg daily eliquis I had a very long discussion with him about smoking cessation. He verbalized understanding and also is cognizant of the potential implications of continuing to smoke 06/12/2024 Anxiety disorder, unspecified (ICD-10 - F41.9) Xanax prn 05/13/2024 Chronic atrial fibrillation (ICD-10 - I48.20) Recently sent to hospital for a fib with RVR. He was cardioverted. He is now under the care of development representative, Dr Otto. He is being referred to EP. Sees them on 05/30/24 He will continue with entresto 24-26 BID Lasix 20mg daily metoprolol 200mg XL BID amiodarone 200mg daily eliquis I had a very long discussion with him about smoking cessation. He verbalized understanding and also is cognizant of the potential implications of continuing to smoke 04/17/2024 Chronic atrial fibrillation (ICD-10 - I48.20) Recently sent to hospital for a fib with RVR. He was cardioverted. He is now under the care of development representative, Dr Otto. He is being referred to EP. He will continue with entresto 24-26 BID Lasix 20mg daily metoprolol 200mg XL BID amiodarone 200mg daily eliquis He has quit smoking. Avoid triggers 11/11/2024 Chronic atrial fibrillation (ICD-10 - I48.20) S/P cardiac ablation Cardiology disconintued entresto Added telmisartan Changed metoprolol to 200mg XL daily from BID Lasix 20mg daily amiodarone 200mg daily eliquis Keep appt with cardiology 09/17/2024 Chronic atrial fibrillation (ICD-10 - I48.20) 08/05/2024 Anxiety disorder, unspecified (ICD-10 - F41.9) Xanax prn 08/05/2024 Chronic atrial fibrillation (ICD-10 - I48.20) S/P cardiac ablation He will continue with entresto 24-26 BID Lasix 20mg daily metoprolol 200mg XL BID amiodarone 200mg daily eliquis He has follow up appts with cardiology on 08/28 and 09/2409/17/2024 Primary hypertension (ICD-10 - I10) 11/11/2024 Primary hypertension (ICD-10 - I10) Meds per above Under care of cardiology 04/17/2024 Primary hypertension (ICD-10 - I10) Meds per above 05/13/2024 Primary hypertension (ICD-10 - I10) Meds per above 06/12/2024 Chronic atrial fibrillation (ICD-10 - I48.20) Recently sent to hospital for a fib with RVR. He was cardioverted. He is now under the care of development representative, Dr Otto. He will continue with entresto 24-26 BID Lasix 20mg daily metoprolol 200mg XL BID amiodarone 200mg daily eliquis He has stopped smoking. He has an appt with general cardiology today and EP in near future for planned ablation 03/14/2024 Primary hypertension (ICD-10 - I10) Meds per above 12/16/2024 Primary hypertension (ICD-10 - I10) Meds per above Under care of cardiology 01/09/2025 Primary hypertension (ICD-10 - I10) Meds per above Under care of cardiology 02/20/2025 Chronic obstructive pulmonary disease, unspecified (ICD-10 - J44.9) Encouraged compliance with inhalers. Had CT CAP, at [facility], await results. We have discussed smoking cessation on several visits 02/20/2025 Gastro-esophageal reflux disease without esophagitis (ICD-10 - K21.9) Continue PPI, avoid triggers 01/09/2025 Chronic obstructive pulmonary disease, unspecified (ICD-10 - J44.9) Encouraged compliance with inhalers. He was supposed to have a repeat chest CT scan for multiple pulmonary nodules. Dr Hurd retired He needs to rescheduled pulmonology appt. He has the phone number to call and schedule. I will place order for CT chest with goal of having performed day he has CT abd pel We have discussed smoking cessation on several visits 03/14/2024 Chronic obstructive pulmonary disease, unspecified (ICD-10 - J44.9) Encouraged compliance with inhalers. He was supposed to have a repeat chest CT scan for multiple pulmonary nodules. Dr Vickey rasheed Will refer to new specialist Encouraged smoking cessation 06/12/2024 Primary hypertension (ICD-10 - I10) Meds per above BP elevated today but states home readings have been normal. 04/17/2024 Chronic obstructive pulmonary disease, unspecified (ICD-10 - J44.9) Encouraged compliance with inhalers. He was supposed to have a repeat chest CT scan for multiple pulmonary nodules. Has appt with pulmonology next month 05/13/2024 Chronic obstructive pulmonary disease, unspecified (ICD-10 - J44.9) Encouraged compliance with inhalers. He was supposed to have a repeat chest CT scan for multiple pulmonary nodules. Dr Vickey rasheed Has appt with scientific technical writer on 05/20/24 Encouraged smoking cessation 11/11/2024 Chronic obstructive pulmonary disease, unspecified (ICD-10 - J44.9) Encouraged compliance with inhalers. He was supposed to have a repeat chest CT scan for multiple pulmonary nodules. Dr Vickey rasheed Has appt with scientific technical writer in early August but plans to reschedule He did not receive the chantix I ordered. He states he is doing well in regard to smoking. He did request a script for chantix today so I suspect he is still smoking somewhat 12/16/2024 Chronic obstructive pulmonary disease, unspecified (ICD-10 - J44.9) Encouraged compliance with inhalers. He was supposed to have a repeat chest CT scan for multiple pulmonary nodules. Dr Hurd retired He needs to rescheduled pulmonology appt He did not receive the chantix I ordered. He states he is doing well in regard to smoking. He did request a script for chantix today so I suspect he is still smoking somewhat 09/17/2024 Chronic obstructive pulmonary disease, unspecified (ICD-10 - J44.9) 08/05/2024 Primary hypertension (ICD-10 - I10) Meds per above Under care of cardiology 09/17/2024 Gastro-esophageal reflux disease without esophagitis (ICD-10 - K21.9) 08/05/2024 Chronic obstructive pulmonary disease, unspecified (ICD-10 - J44.9) Encouraged compliance with inhalers. He was supposed to have a repeat chest CT scan for multiple pulmonary nodules. Dr Hurd retired Has appt with scientific technical writer in early August but plans to reschedule He did not receive the chantix I ordered. He states he is doing well in regard to smoking. He did request a script for chantix today so I suspect he is still smoking somewhat 12/16/2024 Gastro-esophageal reflux disease without esophagitis (ICD-10 - K21.9) Pt verbalized that he is aware of food triggers. Cont with omeprazole 11/11/2024 Gastro-esophageal reflux disease without esophagitis (ICD-10 - K21.9) Pt verbalized that he is aware of food triggers. Cont with omeprazole 05/13/2024 Gastro-esophageal reflux disease without esophagitis (ICD-10 - K21.9) Pt verbalized that he is aware of food triggers. Cont with omeprazole 04/17/2024 Gastro-esophageal reflux disease without esophagitis (ICD-10 - K21.9) Pt verbalized that he is aware of food triggers. Cont with omeprazole 06/12/2024 Chronic obstructive pulmonary disease, unspecified (ICD-10 - J44.9) Encouraged compliance with inhalers. He was supposed to have a repeat chest CT scan for multiple pulmonary nodules. Dr Hurd retiremindy Has appt with scientific technical writer on 05/20/24 Encouraged smoking cessation 03/14/2024 Gastro-esophageal reflux disease without esophagitis (ICD-10 - K21.9) Pt verbalized that he is aware of food triggers. Cont with omeprazole 01/09/2025 Gastro-esophageal reflux disease without esophagitis (ICD-10 - K21.9) Pt verbalized that he is aware of food triggers. Cont with omeprazole 02/20/2025 Unsp rotatr-cuff tear/ruptr of right shoulder, not trauma (ICD-10 - M75.101) Hydrocodone is assisting with pain. MRI from 2019 revealed superior labrum extending posteriorly to 10 o'clock position. Has received steroid injections in the past. Continue with hydrocodone. Pain journal received today. UDS completed. 02/20/2025 Primary hypertension (ICD-10 - I10) Meds per above Under care of cardiology 01/09/2025 Hyperlipidemia, unspecified hyperlipidemia type (ICD-10 - E78.5) Cont with statin. 12/16/2024 Hyperlipidemia, unspecified hyperlipidemia type (ICD-10 - E78.5) Cont with statin. 03/14/2024 Hyperlipidemia, unspecified hyperlipidemia type (ICD-10 - E78.5) Cont with statin. Labs today 06/12/2024 Gastro-esophageal reflux disease without esophagitis (ICD-10 - K21.9) Pt verbalized that he is aware of food triggers. Cont with omeprazole 05/13/2024 Hyperlipidemia, unspecified hyperlipidemia type (ICD-10 - E78.5) Cont with statin. Labs today 04/17/2024 Hyperlipidemia, unspecified hyperlipidemia type (ICD-10 - E78.5) Cont with statin. 11/11/2024 Hyperlipidemia, unspecified hyperlipidemia type (ICD-10 - E78.5) Cont with statin. Labs today 08/05/2024 Gastro-esophageal reflux disease without esophagitis (ICD-10 - K21.9) Pt verbalized that he is aware of food triggers. Cont with omeprazole 09/17/2024 Hyperlipidemia, unspecified hyperlipidemia type (ICD-10 - E78.5) 08/05/2024 Hyperlipidemia, unspecified hyperlipidemia type (ICD-10 - E78.5) Cont with statin. Labs today 09/17/2024 Nicotine dependence, unspecified, uncomplicated (ICD-10 - F17.200) 11/11/2024 Nicotine dependence, unspecified, uncomplicated (ICD-10 - F17.200) Cessation encouraged-extensive discussion held regarding potential implications of continued smoking Will send in chantix today 12/16/2024 Nicotine dependence, unspecified, uncomplicated (ICD-10 - F17.200) Cessation encouraged-extensive discussion held regarding potential implications of continued smoking Will send in chantix today 04/17/2024 Nicotine dependence, unspecified, uncomplicated (ICD-10 - F17.200) He has done well with smoking cessation. Keep appointment with pulmonology next month 05/13/2024 Nicotine dependence, unspecified, uncomplicated (ICD-10 - F17.200) Cessation encouraged-extensive discussion held regarding potential implications of continued smoking I prescribed chantix in the past has nicotine gum refer to pulmonology 06/12/2024 Hyperlipidemia, unspecified hyperlipidemia type (ICD-10 - E78.5) Cont with statin. Labs today 03/14/2024 Nicotine dependence, unspecified, uncomplicated (ICD-10 - F17.200) Cessation encouraged-extensive discussion held regarding potential implications of continued smoking Never tried chantix(had medication but never took it) or wellbutrin per his reports start chantix has nicotine gum refer to pulmonology 01/09/2025 Nicotine dependence, unspecified, uncomplicated (ICD-10 - F17.200) Cessation encouraged-extensive discussion held regarding potential implications of continued smoking 02/20/2025 Hyperlipidemia, unspecified hyperlipidemia type (ICD-10 - E78.5) Cont with statin. 02/20/2025 Chronic atrial fibrillation (ICD-10 - I48.20) S/P cardiac ablation Cardiology disconintued entresto Added telmisartan Changed metoprolol to 200mg XL daily from BID Lasix 20mg daily amiodarone 200mg daily ian Keep appt with cardiology on 04/16. It sounds like his provider will no longer be practicing in the area so he may need a referral to another provider. He will let us know 12/16/2024 Hyperglycemia (ICD-10 - R73.9) Follow a1c. Attention to diet. 01/09/2025 Hyperglycemia (ICD-10 - R73.9) Follow a1c. Attention to diet. 03/14/2024 Hyperglycemia (ICD-10 - R73.9) Follow a1c. Attention to diet. 06/12/2024 Nicotine dependence, unspecified, uncomplicated (ICD-10 - F17.200) Cessation encouraged-extensive discussion held regarding potential implications of continued smoking I prescribed chantix in the past has nicotine gum Has appt with pulmonology on 07/01/24 05/13/2024 Hyperglycemia (ICD-10 - R73.9) Follow a1c. Attention to diet. 04/17/2024 Hyperglycemia (ICD-10 - R73.9) Follow a1c. Attention to diet. 11/11/2024 Hyperglycemia (ICD-10 - R73.9) Follow a1c. Attention to diet. 09/17/2024 Hyperglycemia (ICD-10 - R73.9) 08/05/2024 Nicotine dependence, unspecified, uncomplicated (ICD-10 - F17.200) Cessation encouraged-extensive discussion held regarding potential implications of continued smoking Will send in chantix today 08/05/2024 Hyperglycemia (ICD-10 - R73.9) Follow a1c. Attention to diet. 09/17/2024 Congestive heart failure, unspecified HF chronicity, unspecified heart failure type (ICD-10 - I50.9) 11/11/2024 Congestive heart failure, unspecified HF chronicity, unspecified heart failure type (ICD-10 - I50.9) Entresto stopped by cardiology. Place on telmisartan. Continue lasix at 20mg daily Keep upcoming appts with cardiology 04/17/2024 Screening for prostate cancer (ICD-10 - Z12.5) PSA normal 03/14/2024 On watermelon inspector drug therapy (ICD-10 - Z79.899) Check UDS 05/13/2024 Congestive heart failure, unspecified HF chronicity, unspecified heart failure type (ICD-10 - I50.9) Now on entresto 24-26 BID and lasix at 20mg daily Followup with cardiology 06/12/2024 Hyperglycemia (ICD-10 - R73.9) Follow a1c. Attention to diet. 01/09/2025 Congestive heart failure, unspecified HF chronicity, unspecified heart failure type (ICD-10 - I50.9) Entresto stopped by cardiology. Place on telmisartan. Continue lasix at 20mg daily Keep upcoming appts with cardiology. Next on 04/1612/16/2024 Congestive heart failure, unspecified HF chronicity, unspecified heart failure type (ICD-10 - I50.9) Entresto stopped by cardiology. Place on telmisartan. Continue lasix at 20mg daily Keep upcoming appts with cardiology 02/20/2025 Screen for colon cancer (ICD-10 - Z12.11) Had polyps excised on colonoscopy this month, pathology revealed benign 02/20/2025 Hyperglycemia (ICD-10 - R73.9) Follow a1c. Attention to diet. 01/09/2025 Lip lesion (ICD-10 - K13.0) Treated with cryotherapy in the past 12/16/2024 Lip lesion (ICD-10 - K13.0) Treated with cryotherapy in the past 06/12/2024 Congestive heart failure, unspecified HF chronicity, unspecified heart failure type (ICD-10 - I50.9) Now on entresto 24-26 BID and lasix at 20mg daily Has appt with cardiology today 05/13/2024 Lip lesion (ICD-10 - K13.0) Treated with cryotherapy today. If persistent, will refer to derm 04/17/2024 Congestive heart failure, unspecified HF chronicity, unspecified heart failure type (ICD-10 - I50.9) Now on entresto 24-26 BID and lasix at 20mg daily Followup with cardiology Has appointment with director of real estate on 05/20/2024 03/14/2024 Screening for prostate cancer (ICD-10 - Z12.5) Will check PSA 11/11/2024 Lip lesion (ICD-10 - K13.0) Treated with cryotherapy in the past 08/05/2024 Congestive heart failure, unspecified HF chronicity, unspecified heart failure type (ICD-10 - I50.9) Now on entresto 24-26 BID and lasix at 20mg daily Keep upcoming appts with cardiology 08/05/2024 Lip lesion (ICD-10 - K13.0) Treated with cryotherapy in the past 11/11/2024 Screen for colon cancer (ICD-10 - Z12.11) Check colonoscopy. Would like it at [facility] 03/14/2024 Congestive heart failure, unspecified HF chronicity, unspecified heart failure type (ICD-10 - I50.9) Now on entresto 24-26 BID and lasix at 20mg daily Followup with cardiology 04/17/2024 Sinusitis, unspecified chronicity, unspecified location (ICD-10 - J32.9) Symptoms improved with Augmentin and azithromycin 06/12/2024 Lip lesion (ICD-10 - K13.0) Treated with cryotherapy today. If persistent, will refer to derm 12/16/2024 Screen for colon cancer (ICD-10 - Z12.11) Has colonoscopy scheduled for 01/0501/09/2025 Screen for colon cancer (ICD-10 - Z12.11) Had polyps excised on colonoscopy this month 02/20/2025 Congestive heart failure, unspecified HF chronicity, unspecified heart failure type (ICD-10 - I50.9) Entresto stopped by cardiology. Place on telmisartan. Continue lasix at 20mg daily Keep upcoming appts with cardiology. Next on 04/1602/20/2025 Abdominal discomfort (ICD-10 - R10.9) Had colonoscopy. Check CT abd pelvis, await results. Metamucil PRN is helping 12/16/2024 Abdominal discomfort (ICD-10 - R10.9) Keep appt for colooscopy. Check CT abd pelvis. 01/09/2025 Abdominal discomfort (ICD-10 - R10.9) Had colonoscopy. Check CT abd pelvis. Has appt for 02/0303/14/2024 Sinusitis, unspecified chronicity, unspecified location (ICD-10 - J32.9) Although I have not confirmed that he has active CAP, he has had it in the past and current symptoms are consistent with those at the start of previous bouts of pneumonia. He also continues to smoke. Start augmentin and azithromyin 01/09/2025 Pulmonary nodules (ICD-10 - R91.8) Will order CT chest for interval assessment Advised on smoking cessation 02/20/2025 Pulmonary nodules (ICD-10 - R91.8) Await CT results to be sent over Advised on smoking cessation 02/20/2025 Lip lesion (ICD-10 - K13.0) Treated with cryotherapy in the past, not addressed today 02/20/2025 On watermelon inspector drug therapy (ICD-10 - Z79.899) 05/13/2024 Other Continue hydroco 06/12/2024 Other Continue hydroco 09/17/2024 Other Cessation encouraged Has appt with scientific technical writer in early August but plans to reschedule Cont with omeprazole Hydrocodone is assisting with pain. MRI from 2019 revealed superior labrum extending posteriorly to 10 o'clock position. In three rotator cuff tendon tear Has received steroid injections in the past. Continue with hydrocodone. Meds per above Under care of cardiology Cont with statin. Labs today S/P cardiac ablation . maintain appointment next week with Dr. Rivera and Dr. Otto.He will continue with entresto 24-26 BID Lasix 20mg daily metoprolol 200mg XL BID amiodarone 200mg daily ian He has follow up appts with cardiology on 08/28 and 09/24 Follow a1c. Attention to diet. Now on entresto 24-26 BID and lasix at 20mg daily Keep upcoming appts with cardiology Treated with cryotherapy in the past Plan Of Treatment Pending Test Test Name Order Date MT CBC w/Diff, Platelet Ct. 0053-9 08/02 MT Comprehensive Metabolic Panel 3427-2 08/02/2022 MT Lipid Screen W/Reflex to Direct LDL M 063-6 08/02/2022 Next Appt Details Provider Name:Josh WESTBROOK Fabi ry, 03/26/2025 11:00:00 AM, [address] [place], [address], Insurance Providers Payer Name Payer Address Payer Phone Subscriber Number Group Number Insured Name Patient Relationship to Insured Coverage Start Date Coverage End Date [facility] (Medicare Replacement /Advantage - HMO) [address] [address] [place], [place] [phone] [id number] JOSEF PAYNE Self - patient is the insured 8 Medical (General) History Medical History History ICD Code Anxiety state Atrial fibrillation Degeneration of cervical intervertebral disc Disorder of rotator cuff Gastroesophageal reflux disease Partial thickness rotator cuff tear Tobacco dependence syndrome Primary hypertension I10 chronic obstructive pulmonary disease Surgical History Surgery Date(Month/Year) Colonoscopy 01/13/2025 Other endoscopy 05/15/2005 Hand tendon reconstruction ( [address]102) RT. HAND at [facility] in [place] 03/25/2020 Cardiac catheterization ([id number]) [facility] 09/04/2020 Colonoscopy(three polyps fou nd) return in three years for next colonoscopy 12/28/2015 Ablation - Cardiac - [facility] 07/04/2024 Colonoscopy-[facility] [place] 01/02/25
--- NOTE | 2025-03-08 00:26 | ECG_ITS ---
Test Date: 2025-03-08 01:03:31 Measurements Intervals Haugen Rate: 60 P: 71 KS: 172 QRS: 29 QRSD: 103 T: 44 QT: 463 QTc: 463 Interpretive Statements SINUS RHYTHM NORMAL ECG No previous ECG available for comparison Electronically Signed On 03-08-2025 08:25:05 CDT by Doc Perry D.O.
[2025-03-08 00:57] LABS: Hematocrit 43.8 % (42.0-52.0); Hemoglobin 14.4 g/dL (14.0-18.0); Immature Granulocyte Percent A 0.3 % (0-0.5); Lymphocytes Absolute Auto 2.24 K/mm3 (0.9-3.2); Mean Corpuscular HGB Conc 32.9 g/dl (32-36); Mean Corpuscular Hemoglobin 32.1 pg (26-34); Mean Corpuscular Volume 97.6 fl (80-100); Nucleated Red Blood Cells Absolute Auto 0.000 K/mm3 (0.0-0.012); Nucleated Red Blood Cells Perc 0.0 % (0.0-0.2); Platelet Count Result 267 k/mm3 (150-375); Red Blood Count 4.49 M/mm3 (4.6-6.20); White Blood Count 6.4 K/mm3 (4.5-10.0)
[2025-03-08 01:03] LABS: Estimated CRCL calculation 67 ml/min; Estimated Glomerular Filt Rate > 60
[2025-03-08 01:06] LABS: INR 1.1; Partial Thromboplastin Time 31.0 Seconds (22.3-36.8); Prothrombin Time 14.7 Seconds (11.1-14.7)
[2025-03-08 01:11] LABS: Alanine Aminotransferase 24 U/L (6-50); Albumin Level 4.6 g/dL (3.5-5.1); Alkaline Phosphatase 75 U/L (38-126); Anion Gap 11 mmol/L (4-12); Aspartate Amino Transferase 39 U/L (17-59); Bilirubin,Total 0.5 mg/dL (0.2-1.3); Blood Urea Nitrogen 16 mg/dL (9-20); Calcium 8.7 mg/dL (8.4-10.2); Carbon Dioxide 26 mmol/L (22-30); Chloride 100 mmol/L (98-107); Estimated CRCL calculation 87 ml/min; Estimated Glomerular Filt Rate > 60; Glucose 87 mg/dL (65-110); Potassium 4.4 mmol/L (3.4-5.0); Sodium 137 mmol/L (137-145); Total Protein 8.0 g/dL (6.3-8.2)
--- NOTE | 2025-03-08 01:47 | ED_ITS ---
HPI - Trauma General Chief Complaint: Trauma Stated Complaint: fell down basement stairs, 15 steps. Time Seen by Provider: 03/08/25 00:13 Source: patient Mode of arrival: ambulatory Limitations: no limitations History of Present Illness HPI narrative: Patient is a 59-year-old male who presents the ED with report of trauma. Patient reports he slipped on his flip-flop and fell down approximately 15 concrete steps at his house. Hit his head, sustained laceration to R scalp. Denied LOC. Did sustain several skin tears to nick arms, worst throughout R forearm. Also complains of pain to his right shoulder. Denies neck or back pain, chest pain, abdominal pain, difficulty breathing, numbness, dizziness, vision changes, nausea, vomiting. Patient is on Eliquis due to history of atrial fibrillation. He does admit to drinking half a fifth of rum tonight. Tetanus is unknown. Related Data Allergies Allergy/AdvReac Type Severity Reaction Status Date / Time No Known Allergies Allergy Unverified 06/28/13 21:43 Review of Systems 2 Review of Systems: All systems reviewed & are unremarkable except as noted in HPI. All systems reviewed & are unremarkable except as noted in HPI and below Exam 2 Narrative: GENERAL: Intoxicated appearing, well-nourished, non-toxic, in no acute distress. HEAD: Normocephalic. Contusions/bruising/superficial skin abrasions to right sided facial cheek, right temporal region. 3 cm laceration to right parietal scalp. Minimal active bleeding. EENT: PERRL/EOMI, conjunctiva clear. No nystagmus. No pain with EOM. TM clear nick, no hemotympanum. No Wasserman sign, raccoon eyes. No tenderness over bridge of nose. No epistaxis. No septal hematoma. Neck: No midline cervical spinal tenderness. RESPIRATORY: Airway patent, respirations nonlabored. Clear to auscultation bilaterally, no rales, rhonchi, wheezing. CARDIOVASCULAR: Regular rate and rhythm without murmurs, rubs, or gallops. ABDOMINAL: Soft, nontender, nondistended. Normoactive BS. MUSCULOSKELETAL: Moves all extremities. No gross deformities. Numerous superficial skin abrasions to left hand, right forearm. Contusion/bruising to right superior shoulder with focal tenderness to palpation throughout right shoulder joint. Small contusion to right anterior chest wall without significant tenderness. No palpable bony deformities. SKIN: Warm, dry, normal color. NEURO: A&O X3. Speech clear. Cranial nerves II-XII grossly intact. Steady gait. No ataxic movements. No focal deficits. PSYCHIATRIC: Appropriate mood and affect. Normal interaction. Course Vital Signs Vital signs: Vital Signs Pulse Rate 60 03/08/25 00:02 Respiratory Rate 18 03/08/25 00:02 Blood Pressure 142/76 H 03/08/25 00:02 Pulse Oximetry 100 03/08/25 00:02 Oxygen Delivery Room Air 03/08/25 00:02 Temperature 97.4 F L 03/08/25 00:13 Pulse Rate 58 L 03/08/25 00:21 Respiratory Rate 12 03/08/25 00:13 Blood Pressure 182/103 H 03/08/25 00:13 Pulse Oximetry 98 03/08/25 00:13 Oxygen Delivery Room Air 03/08/25 00:13 Procedures Laceration Laceration 1: Date: 03/08/25 Time: 02:00 Site: scalp Side (If applicable): right Size (cm): 3 Description: linear Depth: simple, single layer Local Anesthetic: lidocaine 1% Amount of anesthesia used (mL): 6 Pre-repair: wound explored, irrigated and irrigated extensively ====== Skin Level ====== Skin layer closed with: nylon Size (cm): 4-0 Number of sutures: 7 Technique: simple, interrupted ====== Subcutaneous Layer ====== ====== Muscle Layer ====== ====== Tendon Layer ====== MDM - Trauma MDM Narrative Medical decision making narrative: Patient presented to ED status post fall down 15 concrete steps. Head injury with scalp laceration, on Eliquis. Positive EtOH. Trauma activated. Vital signs stable upon arrival. Patient is neurologically intact. Able to answer all of my questions. Mostly complaining of pain to right-sided head, right shoulder. No obvious gross deformities, several superficial small abrasions. CT brain, cervical spine, facial bones was without acute traumatic findings. Did show possible right nasal bone fracture, but may be old. Patient without any tenderness over bridge of nose currently. No epistaxis after fall or currently. Low suspicion for acute fracture. He does report history of previous nasal fracture in the past. X-ray of right shoulder negative. Discussed possibility of rotator cuff injury, muscular strain, given sling for comfort/support. CT scan of chest/abdomen/pelvis with T/L spine was obtained and also unremarkable. No traumatic findings. No fractures. Scalp laceration was repaired without complications. Tetanus was updated. Skin tears were cleansed and bandage, did not require further repair. Patient was monitored in the ED for several hours without further issue. Clinically sober at this time. Safe for discharge home with family. Family is at bedside. Patient is comfortable with plan. Advised to have close follow-up with PCP for further evaluation wound check within the next 1 week. Discussed rice therapy for right shoulder strain. Discussed very strict return precautions. Patient in agreement with plan. Discharged in stable condition. Ambulatory with steady gait. Medical Records Attestation: I reviewed the patient's medical records. Lab Data Attestation: I reviewed the patient's lab results. 03/08/25 00:49 03/08/25 00:49 Labs: Lab Results 03/08/25 03/08/25 Range/Units 00:32 00:49 WBC 6.4 (4.5-10.0) K/mm3 RBC 4.49 L (4.6-6.20) M/mm3 Hgb 14.4 (14.0-18.0) g/dL Hct 43.8 (42.0-52.0) % MCV 97.6 (80-100) fl MCH 32.1 (26-34) pg MCHC 32.9 (32-36) g/dl RDW 13.5 (11.5-14.5) % Plt Count 267 (150-375) k/mm3 MPV 9.0 (7.4-10.4) fl Immature Gran % (Auto) 0.3 (0-0.5) % Neut % (Auto) 47.3 (45.5-73.1) % Lymph % (Auto) 34.9 (18.3-44.2) % Page % (Auto) 11.9 H (2.6-8.5) % Eos % (Auto) 4.2 (0-4.4) % Baso % (Auto) 1.4 H (0.2-1.2) % Lymph # (Auto) 2.24 (0.9-3.2) K/mm3 Page # (Auto) 0.8 H (0.1-0.6) K/mm3 Eos # (Auto) 0.3 (0-0.3) K/mm3 Baso # (Auto) 0.1 (0.0-0.1) K/mm3 Abs Immat Gran (auto) 0.02 (0.00-0.031) K/mm3 Absolute Neuts (auto) 3.0 (1.3-6.7) K/mm3 Absolute Nucleated RBC 0.000 (0.0-0.012) K/mm3 Nucleated RBC % 0.0 (0.0-0.2) % PT 14.7 (11.1-14.7) Seconds INR 1.1 APTT 31.0 (22.3-36.8) Seconds Sodium 137 (137-145) mmol/L Potassium 4.4 (3.4-5.0) mmol/L Chloride 100 (98-107) mmol/L Carbon Dioxide 26 (22-30) mmol/L Anion Gap 11 (4-12) mmol/L BUN 16 (9-20) mg/dL Creatinine 1.20 0.91 (0.8-1.5) mg/dL Estim Creat Clear Calc 67 87 ml/min Estimated GFR > 60 > 60 (59 - ) Glucose 87 (65-110) mg/dL Calcium 8.7 (8.4-10.2) mg/dL Total Bilirubin 0.5 (0.2-1.3) mg/dL AST 39 (17-59) U/L ALT 24 (6-50) U/L Alkaline Phosphatase 75 (38-126) U/L Total Protein 8.0 (6.3-8.2) g/dL Albumin 4.6 (3.5-5.1) g/dL Ethyl Alcohol 91 (<10) mg/dL Imaging Data Attestation: I personally reviewed and interpreted this imaging study as follows: Radiologist's impression: STAT RAD CT brain: No evidence of acute intracranial abnormality. No ICH, mass effect or edema. No skull fracture. STAT RAD CT facial bones: Questionable mildly distressed fracture of the right nasal bones versus old deformity. Correlate clinically. Otherwise no evidence of acute fracture of the facial bones. Orbital mar and globes are intact. STAT RAD CT cervical spine: No evidence of acute fracture or traumatic subluxation. No high-grade central canal stenosis. Multilevel spondylosis. Bullous emphysematous changes in the lung apices. STAT RAD CT T spine: No evidence of acute fracture or traumatic subluxation. No high-grade central canal stenosis. STAT RAD CT L spine: No evidence of acute fracture or traumatic subluxation. Moderate to severe central canal stenosis of the L3-L4 level STAT RAD CT chest: No acute intrathoracic abnormality. No acute osseous abnormality. Advanced emphysematous changes in the lung apices. Bibasilar atelectasis. No large effusion or pneumothorax. Right upper lobe 7 mm nodule. Small hiatal hernia. Distal esophageal mural thickening, inflammation versus under distention. STAT RAD CT abdomen/pelvis: No acute intra-abdominal abnormality or solid organ injury. No ascites or free air. No acute osseous abnormality. STAT RAD XR R shoulder: No evidence of acute fracture dislocation. Discharge Plan Discharge Clinical Impression: Fall down stairs Qualifiers: Encounter type: initial encounter Qualified Code(s): W10.8XXA - Fall (on) (from) other stairs and steps, initial encounter Laceration of scalp Qualifiers: Encounter type: initial encounter Qualified Code(s): S01.01XA - Laceration without foreign body of scalp, initial encounter Closed head injury Qualifiers: Encounter type: initial encounter Qualified Code(s): S09.90XA - Unspecified injury of head, initial encounter Alcohol intoxication Qualifiers: Complication of substance-induced condition: uncomplicated Qualified Code(s): F 10.920 - Alcohol use, unspecified with intoxication, uncomplicated Right shoulder strain Qualifiers: Encounter type: initial encounter Qualified Code(s): S46.911A - Strain of unspecified muscle, fascia and tendon at shoulder and upper arm level, right arm, initial encounter Patient Disposition: Home Condition: Stable Instructions: Antibiotic Form, Laceration (ED), Concussion (ED), Head Injury (ED), Shoulder Sprain (ED) Additional Instructions: Your imaging here did not show any traumatic findings. You likely be very sore over the next few days. Recommend Tylenol as needed for pain, ice to areas of pain. You may use sling for comfort/support. Follow-up with your primary care doctor for wound check/suture removal in 5-7 days. Return to the ED if you experience uncontrolled bleeding, severe dizziness, passing out, vision changes, unable to keep down food or drink, chest pain, difficulty breathing, severe pain, numbness, or any other symptoms of concern. Patient Language: Serbian Follow-up/Referrals: PHYSICIAN NOT ON STAFF,NONSTAFF [Primary Care Provider] Time of Disposition: 01:56
[2025-03-08] MEDS: TETANUS,DIPHTHERIA,AC PERTUSSIS ADULT (0.5 ML) BOOSTRIX IM (01:53)
--- OUTSIDE RECORDS SUMMARY | 2025-03-08 02:24 | XMS_ITS | Encounter Summary ---
Author Organization [facility] Address [address] [place] [address] Care Team Providers Care Pump Servicer Supervisor Name Role Phone Josh Canada NP Primary Care Provide r Encounter Details Date Type Department Care Team (Latest Contact Info) Description 01/06/2025 Results Follow-Up [facility] Gastroenterology at [address] [place] [address] Guzman Valentine MD [address] [place] [address] [address] [place], [place] [id number] Surgical pathology Social History Tobacco Use Types Packs/Day Years Used Date Smoking Tobacco: Every Day Cigarettes Smokeless Tobacco: Never Alcohol Use Standard Drinks/Week Comments Yes 0 (1 standard drink = 0.6 oz pur e alcohol) [facility] Utilities Answer Date Recorded In the past 12 months has [employer] gas, oil, or water [employer] threatened to shut off services in your home? No 02/15/2024 Social Connection and Isolation Panel Answer Date Recorded In a typical week, how many times do you talk on the phone with family, friends, or neighbors? More than three times a week 02/15/2024 How often do you get togethe r with friends or relatives? More than three times a week 02/15/2024 How often do you attend chur ch or lutheran services? Never 02/15/2024 Do you belong to any clubs o r organizations such as jainism groups, unions, fraternal or athletic groups, or school groups? No 02/15/2024 How often do you attend meet ings of the clubs or organizations you belong to? Never 02/15/2024 Are you , , di vorced, , never , or living with a partner? 02/15/2024 Overall Financial Resource Strain (CARDIA) Answe r Date Recorded How hard is it for you to pa y for the very basics like food, housing, medical care, and heating? Not very hard 02/15/2024 Hunger Vital Sign Answer Date Recorded Within the past 12 months, y ou worried that your food would run out before you got the money to buy more. Never true 02/15/20 24 Within the past 12 months, t he food you bought just didn't last and you didn't have money to get more. Never true 02/15/2024 PRAPARE - Transportation Answer Date Re corded In the past 12 months, has l ack of transportation kept you from medical appointments or from getting medications? No 07/2023 In the past 12 months, has l ack of transportation kept you from meetings, work, or from getting things needed for daily living? No 02/15/2024 Housing Stability Vital Sign Answer Magdy e Recorded In the last 12 months, was t here a time when you were not able to pay the mortgage or rent on time? No 02/15/2024 In the past 12 months, how m any times have you moved where you were living? 0 02/15/2024 At any time in the past 12 m [facility], were you homeless or living in a fci (including now)? No 02/15/2024 AUDIT-C Answer Date Recorded Q1: How often do you have a drink containing alc ohol? Monthly or less 01/02/2025 Q2: How many drinks containi ng alcohol do you have on a typical day when you are drinking? 5 or 6 01/02/2025 Q3: How often do you have si x or more drinks on one occasion? Monthly 01/02/2025 Personal Safety Answer Date Recorded Have you ever been in or are you currently in a harmful physical or emotional relationship or is someone making you feel afraid or unsafe? 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
--- OUTSIDE RECORDS SUMMARY | 2025-03-08 02:24 | XMS_ITS | Clinical Summary ---
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 Name Role Phone Josh Canada NP Primary Care Provide r Allergies No known active allergies Medications ALPRAZolam (XANAX) 1 mg tablet Take 1 tablet (1 mg total) by mouth daily as needed 9 Active atorvastatin (LIPITOR) 40 mg tablet Take 1 tablet (40 mg total) by mouth daily 4 Active fluticasone propionate (FLOVENT HFA) 220 mcg/actuation inhaler Inhale 2 puffs 2 (two) times a day 4 Active HYDROcodone-acet aminophen (NORCO) 10-325 mg per tablet Take 1 tablet by mouth every 3 hours as needed 9 Active levalbuterol (XOPENEX HFA) 45 mcg/actuation inhaler Inhale 2 puffs as needed 1 Active omeprazole (PriLOSEC) 40 mg capsule Take 1 capsule (40 mg total) by mouth daily before breakfast 9 Active acetaminophen (TYLENOL) 325 mg tablet Take 2 tablets (650 mg total) by mouth every 4 (four) hours as needed for pain, headaches or fever 4 Active calcium carbonate (TUMS) 500 mg (200 mg elemental calcium) chewable tablet Take 1 tablet/chew tab (500 mg total) by mouth 2 (two) times a day as needed for heartburn or indigestion 4 Active amiodarone (PACERONE) 200 mg tabletIndication s:Cardioversion of Atrial Fibrillation Take 1 tablet (200 mg total) by mouth daily 90 tablet 3 4 Active furosemide (LASIX) 20 mg tablet TAKE ONE TABLET BY MOUTH DAILY 90 tablet 5 Active empagliflozin (JARDIANCE) 10 mg tablet Take 1 tablet (10 mg total) by mouth daily 90 tablet 3 5 09/12/19 26 Active apixaban (ELIQUIS) 5 mg tabletIndication s:atrial fibrillation,pos t ABLATION Take 1 tablet (5 mg total) by mouth 2 (two) times a day 180 tablet 3 5 Active telmisartan (MICARDIS) 20 mg tablet Take 1 tablet (20 mg total) by mouth daily 90 tablet 3 5 10/09/19 26 Active metoprolol XL (TOPROL-XL) 200 mg extended release tablet Take 1 tablet (200 mg total) by mouth nightly 90 tablet 3 5 10/09/19 26 Active ondansetron (ZOFRAN) 4 mg tabletIndication s:Screening for colon cancer,Nausea and vomiting, unspecified vomiting type Take 1 tablet (4 mg) total 30 minutes before starting colonoscopy prep. Use the 2nd tablet as needed for nausea and vomiting. 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 Refractory to amiodarone, recurrent after cardioversion. Occurring in context of/complicated by moderate cardiomyopathy with chronic systolic heart failure. I counseled the patient regarding management options for symptomatic persistent atrial fibrillation. These include rate control/expectant therapy, escalation of amiodarone with repeat electrical cardioversion or catheter ablation. After review of the relative merits of each approach, the patient expressed preference for ablation. I reviewed the procedural steps, risks/benefits, recovery and expected outcomes for AF ablation. High risk for complications during this major surgery due to cardiomyopathy COPD, ongoing smoking. I reviewed the concept that patients with persistent AF are at higher risk for recurrence, and that a second procedure is often necessary to achieve an optimal outcome. I emphasized the importance of uninterrupted anticoagulation for at least 3 months following ablation, regardless of baseline thromboembolic risk. After answering all questions, the patient elected to proceed with ablation. He will call to schedule: --Atrial fibrillation ablation w/anesthesia --JHOAN on table prior to procedure --Continue apixaban 5 mg BID. Hold starting the evening prior to procedure. --Continue metoprolol XL 200 mg BID --Continue amiodarone 200 mg daily for now. Anticipate stopping during f/u post-ablation. Pt will follow-up 1 month post-ablation in the AF clinic with a nurse practitioner. Follow-up with me 3 months post-ablation. Encounters Date Type Department Care Team Description 02/19/2025 4:12 PM CDT - 02/19/2025 11:59 PM CDT Hospital Encounter [address] [address] Abdominal discomfort Discharge Disposition: Discharge to home or self care 01/06/2025 Results Follow-Up [facility] Gastroenterology at [address] [place] [address] Guzman Valentine MD Surgical pathology 01/02/2025 9:40 AM CDT Anesthesia Event [facility] [address] [place] [id number] Maira Noel MD 01/02/2025 9:30 AM CDT - 01/02/2025 10:00 AM CDT Surgery [facility] [address] [place] [address] Guzman Valentine MD COLON REMOVAL SNARE 01/02/2025 8:20 AM CDT - 01/02/2025 10:47 AM CDT Hospital Encounter [facility] [address] [place] [address] Guzman Valentine MD Screening for colon cancer Discharge Disposition: Discharge to home or self care 12/16/2024 Telephone [facility] Cardiology [address] [place] [address] [address] [place] [address] Joan Otto MD Clearance Request 12/11/2024 Orders Only [facility] Gastroenterology at [address] [place] [address] Guzman Valentine MD Screening for colon cancer (Primary Dx) from Last 3 Months Immunizations Immunization Administration Dates Next Due Influenza, Trivalent, Preservative Free, Intramu scular 02/17/2024 Surgical History Surgery Date Site/Laterality Comments THUMB SURGERY 05/15/2020 - 05/14/2021 Right CARDIAC ELECTROPHYSIOLOGY PROCEDURE 07/18/2024 N/A Procedure: ABLATION ATRIAL FIBRILLATION (A-FIB) VIA PULMONARY VEIN ISOLATION [id number]; Surgeon: Rogerio Buckley III, MD; Location: [facility]; Service: Cardiovascular; Laterality: N/A; Medical devices from this surgery are in the Medical Devices section. CARDIAC ELECTROPHYSIOLOGY PROCEDURE 07/18/2024 N/A Procedure: ABLATION ATRIAL FIBRILLATION ADDITIONAL LINE OR FOCI (+) [id number]; Surgeon: Rogerio Buckley III, MD; Location: [facility]; Service: Cardiovascular; Laterality: N/A; Medical devices from this surgery are in the Medical Devices section. CARDIAC CATHETERIZATION 07/18/2024 N/A Procedure: ULTRASOUND GUIDANCE FOR VASCULAR ACCESS S&I [id number]; Surgeon: Rogerio Buckley III, MD; Location: [facility]; Service: Cardiovascular; Laterality: N/A; Medical devices from this surgery are in the Medical Devices section. CARDIAC ELECTROPHYSIOLOGY PROCEDURE 07/18/2024 N/A Procedure: ABLATE ADDTN'L ARRHYTHMIA, ATRIAL OR VENTRICULAR (+) [id number]; Surgeon: Rogerio Buckley III, MD; Location: [facility]; Service: Cardiovascular; Laterality: N/A; Medical devices from this surgery are in the Medical Devices section. CARDIAC ELECTROPHYSIOLOGY PROCEDURE 07/18/2024 N/A Procedure: LEFT VENTRICLE PACING AND RECORDING [id number]; Surgeon: Rogerio Buckley III, MD; Location: [facility]; Service: Cardiovascular; Laterality: N/A; Medical devices from this surgery are in the Medical Devices section. COLONOSCOPY Medical History Medical History Date Comments Hypertension CHF (congestive heart failure) (HCC) Atrial fibrillation (HCC) COPD (chronic obstructive pulmonary disease) Social History Tobacco Use Types Packs/Day Years Used Date Smoking Tobacco: Every Day Cigarettes Smokeless Tobacco: Never Tobacco Cessation:Ready to Q uit: No; Counseling Given: No Alcohol Use Standard Drinks/Week Comments Yes 0 (1 standard drink = 0.6 oz pur e alcohol) [facility] Utilities Answer Date Recorded In the past 12 months has th e electric, gas, oil, or water company threatened to shut off services in your [...] often do you attend chur ch or protestant services? Never 02/15/2024 Do you belong to any clubs o r organizations such as lutheran groups, unions, fraternal or athletic groups, or [...] any time in the past 12 m [facility], were you homeless or living in a correction (including now)? 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 Gender Identity Not on file Sexual Orientation Not on file Obstetrics History Last Filed Vital Signs Vital Sign Reading Time Taken Comments Blood Pressure 113/77 01/02/2025 10:25 AM CDT Pulse 59 01/02/2025 10:25 AM CDT Temperature 36.4 C (97.6 F) 01/02/2025 10:06 AM CDT Respiratory Rate 15 01/02/2025 10:25 AM CDT Oxygen Saturation 98% 01/02/2025 10:25 AM CDT Inhaled Oxygen Concentration - - Weight 86.2 kg (190 lb) 01/02/2025 8:29 AM CDT Height 185.4 cm (6' 1) 10/08/2024 3:16 PM CDT Body Mass Index 25.07 10/08/2024 3:16 PM CDT Plan of Treatment Health Maintenance Due Date Last Done Comments Depression Screening 1965 Hepatitis C Screening 1965 Prostate Cancer Screening-PSA 1965 Hepatitis B Screening 11/04/1983 Regular Well Visit/Exam 18-64 11/04/1983 Pneumococcal vaccine <65 (2 of 2 - PCV) 04/21/2022 04/21/2021 Zoster Vaccine (2 of 2) 04/23/2024 02/27/2024 Covid-19 Vaccine (4 - 2024-2 6 season) 2025 02/27/2024, 05/12/2021, 07/21/2020, Additional history exists Influenza Vaccine (#1) 2025 02/17/2024, 2020 DTaP/Tdap/Td Vaccine (2 - Td or Tdap) 02/12/2027 02/12/2017 Colon Cancer Screening-Colonoscopy 01/02/20352024 Medical Devices Implanted Type Area Rayon Coner Device Identifier Shelf Expiration Date Model / Serial / Lot [employer] Vascade Mvp 6-12fr Venous Closure [id number] - [id number] - [id number] Implanted:Qty : 1 on 07/18/2024 by Rogerio Buckley III, MD at [facility] Vascular Closure Device Right: Femoral Vein [employer] 03/11/2026 [id number] [id number] / [id number] / [id number] [employer] Device Vascular Closure Vascade Mvp Xl 10-12fr Venous Strl [id number] - [id number] - [id number] Implanted:Qty : 1 on 07/18/2024 by Rogerio Buckley III, MD at [facility] Vascular Closure Device Right: Femoral Vein [employer] 04/24/2026 [id number] L / [id number] / [id number] [employer] Vascade Mvp 6-12fr Venous Closure [id number] - [id number] - [id number] Implanted:Qty : 1 on 07/18/2024 by Rogerio Buckley III, MD at [facility] Vascular Closure Device Right: Femoral Vein [employer] 06/06/2026 [id number] 10U / [id number] / [id number] Procedures Procedure Name Priority Date/Time Associated Diagnosis Comments CT CHEST ABDOMEN PELVIS W CONTRAST Schedule Routine, Read Routine (OP Routine) 02/19/2025 4:31 PM CDT Abdominal discomfort POCT CREATININE FOR CONTRAST EVALUATION Routine 02/19/2025 4:26 PM CDT SURGICAL PATHOLOGY Routine 01/02/2025 9: 53 AM CDT Screening for colon cancer ENDO ADD ON COLON BIOPSY 01/02/2025 9:41 AM CDT Screening for colon cancer COLON REMOVAL SNARE 01/02/2025 9 :41 AM CDT Screening for colon cancer COLONOSCOPY 01/02/2025 9:37 AM CDT POC BLOOD GAS AND CHEMISTRIES, VENOUS Routine 01/02/2025 9:07 AM CDT from Last 3 Months Results * CT Chest Abdomen Pelvis W Contrast (02/19/2025 4:31 PM CDT) Anatomical Region Laterality Modality Body N/A Computed Tomogra phy 02/20/2025 11:4 0 AM CDT Narrative 02/20/2025 12:18 PM CDT EXAM DESCRIPTION: CT CHEST ABDOMEN PELVIS W CONTRAST REASON FOR STUDY: Abdominal discomfort. TECHNIQUE: CT scan of the chest, abdomen, and pelvis performed with intravenous and without oral contrast using helical scanning technique with dynamic intravenous contrast injection. Reconstructed coronal and sagittal MPR images reviewed. All images stored on PACS. Automated exposure control was used as a dose optimization technique for this examination. CONTRAST TYPE/DOSE: 100mL of IOVERSOL 350 MG IODINE/ML INTRAVENOUS SYRINGE injected via intravenous COMPARISON: 03/08/2021 and 02/14/2024. FINDINGS: CHEST LUNGS: There is paraseptal and centrilobular emphysematous change, with some pleuroparenchymal scarring in the apices. There is a nodule within the posteromedial right upper lobe on image number 50 of series 3, measuring 7 mm, stable. 4 mm nodule within the posterior left lower lobe on image number 101 is stable. There is no new suspicious pulmonary nodule. No pneumonic consolidation. Mild subsegmental scarring and atelectasis. The central airways are patent. PLEURA: No effusion. No pneumothorax. MEDIASTINUM/ELENA: The thyroid gland is unremarkable. There is no mediastinal or hilar lymphadenopathy. Subcarinal node measures 9 mm in short axis dimension, stable from prior examination. The esophagus is unremarkable. HEART: The heart is normal in size without pericardial effusion. VASCULATURE CHEST: Thoracic aorta is normal in caliber without dissection. Main pulmonary trunk normal in caliber. AXILLA: No axillary lymphadenopathy. CHEST WALL: Gynecomastia. HARDWARE/LINES/TUBES: None. MUSCULOSKELETAL CHEST: There is cervical spondylosis and degenerative disc disease. Multilevel thoracic spondylosis with Schmorl's nodes. No destructive osseous lesion. ABDOMEN/PELVIS LIVER: The liver is within normal limits in size. There is no discrete hepatic mass. GALLBLADDER: Gallbladder is normally distended. No densely calcified stones or inflammatory process. BILE DUCTS: Within normal limits in size. SPLEEN: There is a 1.2 cm hypodense lesion at the posterior aspect of the spleen, stable dating back to the prior study in February 2024. Statistically in the absence of a history of malignancy this would represent a cyst or hemangioma. PANCREAS: No identified cystic or solid masses. No significant calcifications. No adjacent inflammation or peripancreatic fluid collections. Pancreatic duct not dilated. ADRENALS: Normal. KIDNEYS/URINARY TRACT: No identified significant cystic or solid masses. No visualized stones. No hydronephrosis or hydroureter. Symmetric enhancement. The urinary bladder is thick walled, which could represent cystitis or hypertrophy. GI: There is some mild thickening of the distal stomach though not significantly changed compared to the previous examination. Small bowel loops are within normal limits in caliber. There is no obstruction. The appendix is normal. The colon is within normal limits in caliber. There is increased stool burden demonstrated within the colon. There is decompression of the majority of the descending and sigmoid colon, limiting assessment for wall thickening and mass. PERITONEUM: There is no free intraperitoneal air. There is no free fluid. No mesenteric lymphadenopathy. RETROPERITONEUM: There is no retroperitoneal mass or adenopathy. REPRODUCTIVE: No significant abnormality. VASCULATURE ABDOMEN: The abdominal aorta is normal in caliber without dissection. Portal vein is patent. MUSCULOSKELETAL ABDOMEN PELVIS: There is no acute osseous abnormality. Degenerative disc disease in the lumbar spine greatest at the L4-5 level. OTHER: Small bilateral fat containing inguinal hernias. IMPRESSION: 1. No focal inflammatory process within the chest, abdomen or pelvis. 2. Pulmonary nodules, stable dating back to 2020, favoring benign etiology. No specific imaging follow-up is necessary. 3. Mild thickening of the distal stomach, not significantly changed compared to the prior examination. Correlate with any history of gastritis or peptic ulcer disease. 4. Increased stool burden within the colon. Correlate with any history of constipation. 5. Mild thickening of the urinary bladder wall, which could be due to cystitis or hypertrophy. Correlate with urinalysis. 6. Additional findings as above. THIS IS AN ELECTRONICALLY VERIFIED FINAL REPORT 02/20/2025 12:18 PM - Electronically signed by Yuliya Lara M.D. TW: BRIGITTE Report ID: [id number] Reading Location: [id number] Procedure Note Yuliya Lara MD - 02/20/2025 EXAM DESCRIPTION: CT CHEST ABDOMEN PELVIS W CONTRAST REASON FOR STUDY: Abdominal discomfort. TECHNIQUE: CT scan of the chest, abdomen, and pelvis performed with intravenous and without oral contrast using helical scanning techniquewith dynamic intravenous contrast injection. Reconstructed coronal and sagittalMPR images reviewed. All images stored on PACS. Automated exposure control was used as a dose optimization technique for this examination. CONTRAST TYPE/DOSE: 100mL of IOVERSOL 350 MG IODINE/ML INTRAVENOUS SYRINGE injected via intravenous COMPARISON: 03/08/2021 and 02/14/2024. FINDINGS: CHEST LUNGS: There is paraseptal and centrilobular emphysematous change, withsome pleuroparenchymal scarring in the apices. There is a nodule within the posteromedial right upper lobe on image number 50 of series 3, measuring 7mm, stable. 4 mm nodule within the posterior left lower lobe on image number 101 is stable. There is no new suspicious pulmonary nodule. No pneumonic consolidation. Mild subsegmental scarring and atelectasis. The central airways are patent. PLEURA: No effusion. No pneumothorax. MEDIASTINUM/ELENA: The thyroid gland is unremarkable. There is no mediastinal or hilar lymphadenopathy. Subcarinal node measures 9 mm inshort axis dimension, stable from prior examination. The esophagus isunremarkable. HEART: The heart is normal in size without pericardial effusion. VASCULATURE CHEST: Thoracic aorta is normal in caliber withoutdissection. Main pulmonary trunk normal in caliber. AXILLA: No axillary lymphadenopathy. CHEST WALL: Gynecomastia. HARDWARE/LINES/TUBES: None. MUSCULOSKELETAL CHEST: There is cervical spondylosis and degenerativedisc disease. Multilevel thoracic spondylosis with Schmorl's nodes. No destructive osseous lesion. ABDOMEN/PELVIS LIVER: The liver is within normal limits in size. There is no discrete hepatic mass. GALLBLADDER: Gallbladder is normally distended. No densely calcifiedstones or inflammatory process. BILE DUCTS: Within normal limits in size. SPLEEN: There is a 1.2 cm hypodense lesion at the posterior aspect ofthe spleen, stable dating back to the prior study in February 2024.Statistically in the absence of a history of malignancy this would represent a cyst or hemangioma. PANCREAS: No identified cystic or solid masses. No significant calcifications. No adjacent inflammation or peripancreatic fluidcollections. Pancreatic duct not dilated. ADRENALS: Normal. KIDNEYS/URINARY TRACT: No identified significant cystic or solid masses.No visualized stones. No hydronephrosis or hydroureter. Symmetricenhancement. The urinary bladder is thick walled, which could represent cystitis or hypertrophy. GI: There is some mild thickening of the distal stomach though not significantly changed compared to the previous examination. Small bowelloops are within normal limits in caliber. There is no obstruction. Theappendix is normal. The colon is within normal limits in caliber. There isincreased stool burden demonstrated within the colon. There is decompression of the majority of the descending and sigmoid colon, limiting assessment for wall thickening and mass. PERITONEUM: There is no free intraperitoneal air. There is no freefluid. No mesenteric lymphadenopathy. RETROPERITONEUM: There is no retroperitoneal mass or adenopathy. REPRODUCTIVE: No significant abnormality. VASCULATURE ABDOMEN: The abdominal aorta is normal in caliber without dissection. Portal vein is patent. MUSCULOSKELETAL ABDOMEN PELVIS: There is no acute osseous abnormality. Degenerative disc disease in the lumbar spine greatest at the L4-5 level. OTHER: Small bilateral fat containing inguinal hernias. IMPRESSION: 1. No focal inflammatory process within the chest, abdomen or pelvis. 2. Pulmonary nodules, stable dating back to 2020, favoring benignetiology. No specific imaging follow-up is necessary. 3. Mild thickening of the distal stomach, not significantly changedcompared to the prior examination. Correlate with any history of gastritis orpeptic ulcer disease. 4. Increased stool burden within the colon. Correlate with any historyof constipation. 5. Mild thickening of the urinary bladder wall, which could be due to cystitis or hypertrophy. Correlate with urinalysis. 6. Additional findings as above. THIS IS AN ELECTRONICALLY VERIFIED FINAL REPORT 02/20/2025 12:18 PM - Electronically signed by Yuliya Lara M.D. TW: TW Report ID: [id number] Reading Location: [id number] Josh Canada PULLMAN CAR CLERK IMG CT PROCEDURES Fin al Result * POCT creatinine for contrast evaluation (02/19/2025 4:26 PM CDT) Creatinine POC 1.10 0.80 - 1.30 mg/dL Comment:Testing performed by : [facility], [address] [place] [address]., [id number] Blood 02/19/2025 4:26 PM CDT 02/19/2025 4:26 PM CDT Josh Canada NP POINT OF CARE TEST OR DERABLES Final Result [facility] [address] Department [place] [address] * Surgical pathology (01/02/2025 9:53 AM CDT) Tissue (Colon, Biopsy) 01/02/2025 9:53 AM CDT Comment:Cold biopsy Tissue specimen (specimen) (Polyp(s), colon/colorectal, esophageal, gastric) 01/02/2025 10:02 AM CDT Comment:Hot snare Narrative PATHOLOGY [facility] - 01/03/2025 4:45 PM CDT [facility] Department of Pathology [address] [place] [id number] Note to Patients: This report may contain a detailed description of human tissue sent by a health care provider to the laboratory for pathologic evaluation. The content of this report is essential for diagnosis and may provide important critical findings. This information may be unfamiliar to patients to review without a medical professional present. It is advised that the patient review this report in the presence of a health care provider who can answer questions and explain the details. Final Report Patient Name: JOSEF PAYNE : 1965 (Age: 59) Gender: M Address: [address] [place] [address] Hospital #: [id number] Service: Gastro Location: Patient Type: [facility] OUT[facility]IENT Taken: 01/02/2025 Received: 01/02/2025 Accessioned: 01/02/2025 Reported: 01/03/2025 Physician(s): Andrea Cortés NP Diagnosis: A. Ascending colon polyp biopsy: - Tubular adenoma B. Polypectomy at 20 cm: - Tubular adenoma Marques Colmeanres MD Report Electronically Reviewed and Signed Out By Marques Colmenares MD 01/03/2025 16:45:08 Specimen(s) Received: A: Ascending colon polyp biopsy B: Polypectomy at 20 cm Microscopic Description: Unless gross-only is specified, the final diagnosis for each specimen is based on a microscopic examination of each tissue sample. [id number] Distribution Clinical History: The patient is a 59-year-old man presenting for colon cancer screening. Operative procedure: Colonoscopy with biopsy. Gross Description Received in two formalin jars labeled with the patient's identifiers. A. Labeled ascending colon polyp biopsy and consists of a 0.4 cm naylor-pink tissue fragment, which is entirely submitted. Labeled A1. Jar 0. B. Labeled polypectomy at 20 cm and consists of a 1.0 x 0.7 x 0.7 cm naylor-red, polypoid tissue with an identifiable resection margin (inked black). Sectioned and entirely submitted. Labeled B1. Jar 0. jjb/01/02/2025 12:42 MISSY Jung, [facility] Microscopic slide review and interpretation for this case was performed at [facility], Department of Surgical Pathology, [address] [facility] [place] [id number], [place] [address] CLIA # [id number] us Guzman Valentine MD LAB PATHOLOGY ORDERABLES Final R esult PATHOLOGY [facility] * Colonoscopy (01/02/2025 9:37 AM CDT) Anatomical Region Laterality Modality Other Narrative Procedure Note Guzman Valentine MD - 01/02/2025 9:37 AM CDT [facility] GI ENDOSCOPY Patient Name: Josef Payne Procedure Date: 01/02/2025 9:37 AM Date of : 1965 Admit Type: Outpatient Age: 59 Gender: Male Attending MD: Guzman Valentine M.D., Room: [facility] ENDOSCOPY ROOM 03 Note Status: Finalized Procedure: Colonoscopy Indications: Screening for colorectal malignant neoplasm Referring MD: Providers: Guzman Valentine M.D. Medicines: Monitored Anesthesia Care Complications: No immediate complications. Estimated Blood Loss: Estimated blood loss: none. Procedure: Pre-Anesthesia Assessment: - Prior to the procedure, a History and Physicalwas performed, and patient medications and allergieswere reviewed. The risks and benefits of the procedureand the sedation options and risks were discussed withthe patient. All questions were answered and informed consent was obtained. Patient identification and proposed procedure were verified. After reviewingthe risks and benefits, the patient was deemed in satisfactory condition to undergo the procedure.The anesthesia plan was to use monitored anesthesiacare (MAC). Immediately prior to administration of medications, the patient was re-assessed foradequacy to receive sedatives. The heart rate, respiratory rate, oxygen saturations, blood pressure, adequacyof pulmonary ventilation, and response to care were monitored throughout the procedure. The physical status of the patient was re-assessed after the procedure. The benefits, risks and alternatives of theprocedure and sedation were discussed and informed consentwas obtained. All questions were answered. Please referto the signed informed consent document in the medical record. The scope was passed under direct vision.The [id number]-YL002F colonoscope was introduced through theanus and advanced to the cecum, identified byappendiceal orifice and ileocecal valve. The colonoscopy was performed without difficulty. The patient tolerated the procedure well. The quality of the bowel preparation was good. Scope withdrawal time was 13 minutes. Prep was administered in a split dose. Findings: The perianal and digital rectal examinations were normal. A diminutive (1-3 mm) polyp was found in the ascending colon. Thepolyp was removed with a cold biopsy forceps. Resection and retrieval were complete. A 15 mm polyp was found at 20 cm proximal to the anus. The polyp was sessile. The polyp was removed with a hot snare. Resection andretrieval were complete. To prevent bleeding post-intervention, one hemostatic clip was successfully placed. Clip vessel operator: Clicktivated. There was no bleeding at the end of the procedure. Non-bleeding internal hemorrhoids were found during retroflexion. The hemorrhoids were small. The exam was otherwise without abnormality. Impression: - One diminutive (1-3 mm) polyp in the ascending colon, removed with a cold biopsy forceps. Resected and retrieved. - One 15 mm polyp at 20 cm proximal to the anus, removed with a hot snare. Resected and retrieved.Clip was placed. Clip vessel operator: Clicktivated. - Non-bleeding internal hemorrhoids. - The examination was otherwise normal. Recommendation: - Patient has a contact number available for emergencies. The signs and symptoms of potential delayed complications were discussed with thepatient. Return to normal activities tomorrow. Written discharge instructions were provided to thepatient. - High fiber diet. - Continue present medications. - Await pathology results. - Repeat colonoscopy in 3 years for surveillance. - Patient being worked up for bloating anddyspepsia by PCP, noted plans for upcoming CT scan. If CT negative, recommend PCP to refer back for EGD for further evaluation. In the meantime, recommend continue PPI daily and avoiding NSAIDs. Patientvoiced understanding and agreed with plan. Guzman Valentine M.D. Guzman Valentine M.D. 01/02/2025 10:10:31 AM . Number of Addenda: 0 Note Initiated On: 01/02/2025 9:37 AM Recognized by the [employer] for promoting quality in endoscopy Guzman Valentine MD ENDOSCOPY PROCEDURES Final Resul t * POC Blood Gas and Chemistries, Venous - (01/02/2025 9:07 AM CDT) pH,ynes POC 7.38 7.32 - 7.43 pCO2, ynes POC 50 40 - 50 mmHg [facility] pO2,ynes POC 49 mmHg [facility] Comment: Interpretive Data No reference range established. Current interpretive data was last revised 2019. HCO3, ynes (Calc) POC 29 20 - 30 mmol/L [facility] Base excess, ynes POC 3 mmol/L [facility] Comment: Interpretive Data No reference range established. Current interpretive data was last revised 2019. Hemoglobin, ynes POC 16.0 13.0 - 17.5 g/dL [facility] Hematocrit, ynes POC 47.0 38.9 - 50.3 % [facility] Sodium, ynes POC 139 135 - 145 mmol/L [facility] Potassium, ynes POC 4.4 3.3 - 4.9 mmol/L [facility] Comment: Interpretive Data This method is not able to assess for hemolysis, which may falsely increase potassium concentrations. If further testing is needed to evaluate this result, consider in-laboratory plasma potassium. Current Interpretive Data was last revised on 2022. Glucose, ynes POC 87 70 - 199 mg/dL [facility] Ionized Calcium, ynes POC 4.70 4.50 - 5.10 mg/dL [facility] Blood 01/02/2025 9:07 AM CDT 01/02/2025 9:07 AM CDT us Guzman Valentine MD LAB POCT ORDERABLES - DEVICE Fin al Result Performing Organization Address City/State/[facility] Co de Phone Number RICHA [address] [facility] Department [place] [address] from Last 3 Months Insurance [facility] [employer] [facility] Address: [address] [address] [facility] Address: [address] [address] [place] [address] Advance Directives For more information, please contact: [phone] * Full Code (Latest Code Status on File) Date Activated Date Inactivated Comments 02/14/2024 5:58 PM 02/17/2024 9:25 PM 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
--- OUTSIDE RECORDS SUMMARY | 2025-03-08 02:24 | XMS_ITS | Clinical Summary ---
Author Organization [facility] Address [address] [place] [address] Care Team Providers Care Skydiving Instructor Name Role Phone Allen Epstein MD Primary Care Provider [phone] Chun Hood MD Unavailable [phone] Source Comments [facility],non-owned Affiliates and Associated Physician Practices is amultiple site organization consisting of ambulatory clinics and hospital sitesin [place], [place], [place] and [place]. This disclosure is being madepursuant to the Care Everywhere program and may not contain all information available regarding this patient. Last updated 18.[facility] Allergies No known active allergies Medications * Be aware that medications may not be up to date on this document. Alwaysverify current medications with the patient. omeprazole (PRILOSEC) 40 MG capsule Take 1 (one) capsule by mouth daily before breakfast 2 9 Active apixaban (ELIQUIS) 5 MG tabletIndicatio ns:afib Take 1 tablet by mouth 2 times daily 60 tablet 4 9 Active ALPRAZolam (XANAX) 1 MG tablet Take 1 (one) tablet by mouth once daily as needed for Anxiety Active carisoprodol (SOMA) 350 MG tablet Take 1 (one) tablet by mouth 3 times daily as needed Active HYDROcodone-jerardo taminophen (NORCO) 10-325 MG tablet Take 1 (one) tablet by mouth every 3 hours as needed for Pain Active terbinafine (LAMISIL) 250 MG tablet Take 1 (one) tablet by mouth once daily Active levalbuterol (XOPENEX) 45 MCG/ACT inhaler Inhale 2 (two) puffs by mouth as needed 2 puffs every 6 hours as needed for anything in chest 1 Active lisinopril (Prinivil; Zestril) 40 MG tablet Take 1 (one) tablet by mouth once daily 90 tablet 3 2 Active eplerenone (Inspra) 25 MG tablet Take 0.5 (one-half) tablet by mouth once daily 30 tablet 11 3 Active dilTIAZem ER 24hr (Tiazac) 240 MG capsuleIndicati ons:BANGURA (dyspnea on exertion) TAKE 1 (ONE) CAPSULE BY MOUTH ONCE DAILY 90 capsule 4 3 Active metoprolol succinate XL 24hr (Toprol XL) 200 MG tabletIndicatio ns:BANGURA (dyspnea on exertion) TAKE ONE TABLET BY MOUTH TWICE A DAY 60 tablet 11 3 Active Active Problems Problem Noted Date Diagnosed Date Chronic systolic heart failure 09/20/2020 Atrial fibrillation with RVR 07/15/2020 Persistent atrial fibrillation 07/04/2020 Chronic anticoagulation 03/03/2019 Smoking 03/03/2019 Overview (08/14/2024): IMO 08/14/2024 Palpitations 02/14/2019 Paroxysmal atrial fibrillation 02/14/2019 Immunizations Immunization Administration Dates Next Due MUMTAZ OLMOS PRIMARY 18+YR 07/21/2020 Social History Tobacco Use Types Packs/Day Years Used Date Smoking Tobacco: Light Smoker Cigarettes 0.5 40 Smokeless Tobacco: Current Tobacco Cessation:Ready to Q uit: Not Asked; Counseling Given: Not Answered Comments:Quit 57 days ago Alcohol Use Standard Drinks/Week Comments Not Currently 0 (1 standard drink = 0.6 oz pur e alcohol) Sex and Gender Information Value Date Recorded Sex Assigned at Not on file 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 Gender Identity Not on file Sexual Orientation Not on file Last Filed Vital Signs Vital Sign Reading Time Taken Comments Blood Pressure 124/84 01/10/2024 1:24 PM CDT Pulse 93 01/10/2024 1:24 PM CDT Temperature 41.1 C (106 F) 09/16/2020 11:35 AM CDT Respiratory Rate 14 09/04/2020 1:15 PM CDT Oxygen Saturation 96% 11/16/2022 11:51 AM CDT Inhaled Oxygen Concentration - - Weight 80.3 kg (177 lb) 01/10/2024 1:24 PM CDT Height 182.9 cm (6') 01/10/2024 1:24 PM CDT Body Mass Index 24.01 01/10/2024 1:24 PM CDT Plan of Treatment Health Maintenance Due Date Last Done Comments COLOGUARD (AGES 45-75) - COL ON CA SCREENING 1965 COLON MONITORING 1965 COLONOSCOPY - COLON CA SCREENING 1965 CT COLONOGRAPHY - COLON CA SCREENING 1965 Colorectal Cancer Screening 1965 FIT - COLON CA SCREENING 1965 FLEX SIG - COLON CA SCREENING 1965 LIPID TESTING 1965 HIV SCREENING 1980 HEPATITIS C SCREENING 10/30/1983 DTAP/TDAP/TD VACCINES (1 - Tdap) 1984 HEPATITIS B VACCINE (1 of 3 - 19+ 3-dose series) 1984 PNEUMOCOCCAL VACCINE 50+ (1 of 2 - PCV) 1984 ZOSTER VACCINE (1 of 2) 11/04/2015 DEPRESSION SCREENING 05/15/2024 MEDICARE AWV CALENDAR YEAR 2024 COVID-19 VACCINE (2 - 2024-2 6 season) 2025 07/21/2020 INFLUENZA VACCINE (#1) 2025 HIB VACCINE Aged Out No longer eligi ble based on patient's age to complete this topic HPV VACCINE Aged Out No longer eligi ble based on patient's age to complete this topic MENINGOCOCCAL (Group B) VACC INE SHARED DECISION-MAKING Aged Out No longer eligibl e based on patient's age to complete this topic MENINGOCOCCAL GROUPS A/C/Y/W VACCINE Aged Out No longer eligible b ased on patient's age to complete this topic Insurance MEDICARE [facility] MEDICARE ADV Advance Directives * Full Code (Latest Code Status on File) Date Activated Date Inactivated Comments 07/15/2020 7:50 PM 07/17/2020 3:57 PM * Full Code Date Activated Date Inactivated Comments 07/15/2020 7:30 PM 07/15/2020 7:50 PM * Full Code Date Activated Date Inactivated Comments 02/14/2019 1:25 PM 02/15/2019 6:10 PM Care Teams Skydiving Instructor Relationship Specialty Start Date End Date Allen Epstein MD [address] [place] [address] PCP - General Internal Medicine 02/14/19 [place] [id number] [address] Consulting Physician Cardiac Electrophysiology 07/01/20
--- OUTSIDE RECORDS SUMMARY | 2025-03-08 02:24 | XMS_ITS | Clinical Summary ---
Author Organization [facility] Address [facility] [place] [address] Care Team Providers Care Charge Entry Clerk Name Role Phone Allen Epstein MD Primary Care Provider [phone] Allergies No known active allergies Social History Tobacco Use Types Packs/Day Years Used Date Smoking Tobacco: Never Assessed Sex and Gender Information Value Date Recorded Sex Assigned at Not on file Legal Sex Male 2:41 PM CDT Gender Identity Not on file Sexual Orientation Not on file Plan of Treatment Health Maintenance Due Date Last Done Comments Colorectal Cancer Screening Colonoscopy (10 Years) 1965 Annual Physical 1968 Hepatitis C 11/04/1983 DTaP, Tdap and Td Vaccines ( 1 - Tdap) 1984 Pneumococcal Vaccine: 50+ Ye ars (1 of 1 - PCV) 11/04/2015 Zoster Vaccines (1 of 2) 11/04/2015 COVID-19 Vaccine (1 - 2024-2 6 season) 2025 Influenza Adult (#1) 2025 Hepatitis A Vaccines Aged Out No long er eligible based on patient's age to complete this topic Meningococcal B Vaccine Aged Out No l onger eligible based on patient's age to complete this topic Meningococcal Vaccine Aged Out No ericka leonardo eligible based on patient's age to complete this topic RSV Immunizations Under 20 Months Aged Out No longer eligible based on patient's age to complete this topic Insurance [facility] Care Teams Charge Entry Clerk Relationship Specialty Start Date End Date Allen Epstein MD [address] [place] [address] PCP - General INTERNAL MEDICINE 07/10/20
[2025-03-08] MEDS: ACETAMINOPHEN 500 MG TABLET 1000 MG PO (03:02)
== END 2025-03-08 02:59 | disposition home or self-care (01) ==
PROVIDERS: Emergency Provider Physician Assistant
DX: S01.01XA Laceration without foreign body of scalp, initial encounter (principal); S46.911A Strain of unspecified muscle, fascia and tendon at shoulder and upper arm level, right arm, initial encounter; F10.120 Alcohol abuse with intoxication, uncomplicated; Y90.4 Blood alcohol level of 80-99 mg/100 ml; Z23 Encounter for immunization; I48.91 Unspecified atrial fibrillation; Z79.01 Long term (current) use of anticoagulants; W10.9XXA Fall (on) (from) unspecified stairs and steps, initial encounter; M47.812 Spondylosis without myelopathy or radiculopathy, cervical region; J43.9 Emphysema, unspecified; R91.1 Solitary pulmonary nodule; M47.814 Spondylosis without myelopathy or radiculopathy, thoracic region; M47.816 Spondylosis without myelopathy or radiculopathy, lumbar region
CPT/HCPCS: 12002; 36415; 70450; 70486; 71260; 72125; 72129; 72132; 73030; 74177; 80053; 82077; 85025; 85610; 85730; 90471; 90715; 93005; 99284; A4565; A9270; L0140; Q9967